=== PATIENT | male | born 1940 | race Caucasian/White ===

== ENCOUNTER 2019-10-31 10:13 | Outpatient (CLI) | payer MEDICARE, OTHER, SELFPAY ==
--- NOTE | 2019-10-31 10:29 | XR_ITS ---
WS: [id number] RIGHT SHOULDER: 3 VIEW(S) TECHNIQUE: Internal and external rotation with Y view. HISTORY: ADHESIVE capsulitis RIGHT shoulder, pain, rotator CUFF syndrome COMPARISON: None available. Mild narrowing of the AC joint with bony hypertrophy. Very slight narrowing of the glenohumeral joint . Bones are osteopenic. No loose bodies in the joint space. Visualized RIGHT upper lung is clear. XR/XR shoulder RT min 2V* [id number] IMPRESSION: 1. Mild AC joint osteoarthritis. 2. Minimal narrowing glenohumeral joint.
== END 2019-10-31 10:14 | disposition home or self-care (01) ==
PROVIDERS: Family Provider Family Medicine; PCP Electrodiagnostic Medicine; Visit Provider Electrodiagnostic Medicine
DX: M75.01 Adhesive capsulitis of right shoulder (principal); M75.101 Unspecified rotator cuff tear or rupture of right shoulder, not specified as traumatic; M25.511 Pain in right shoulder; M19.011 Primary osteoarthritis, right shoulder
CPT/HCPCS: 73030

== ENCOUNTER 2021-04-04 10:37 | Outpatient (CLI) | payer MEDICARE, OTHER, SELFPAY ==
[2021-04-04 11:13] VITALS: BP 123/81; PULSE 70; RESP 14; TEMP 36.6; O2SAT 94
[2021-04-04 11:37] VITALS: BP 103/66; PULSE 76; RESP 14; O2SAT 96
== END 2021-04-04 14:25 | disposition home or self-care (01) ==
PROVIDERS: PCP Electrodiagnostic Medicine; Visit Provider Electrodiagnostic Medicine
DX: U07.1 COVID-19 (principal)
CPT/HCPCS: 96365

== ENCOUNTER 2021-04-08 10:40 | Inpatient (IN) | payer MEDICARE, OTHER, SELFPAY ==
[2021-04-08] VITALS (16 sets, daily range): BP systolic 84–117; BP diastolic 61–90; PULSE 60–118; RESP 16–22; TEMP 36.6–36.9; O2SAT 41–99; BMI 30.9; BMI 21.2
--- NOTE | 2021-04-08 11:53 | ECG_ITS ---
[facility] Test Date: 2021-04-08 Pat Name: Scot Molina Department: Room: Gender: Male Collective Bargaining Specialist: : [id number] Requested By: Dae Love Order Number: [id number] Jeferson MD: Josh Wood M.D. Measurements Intervals [place] Rate: 60 P: 64 CA: 164 QRS: -45 QRSD: 98 T: 14 QT: 430 QTc: 433 Interpretive Statements SINUS RHYTHM POSSIBLE LEFT ATRIAL ENLARGEMENT [-0.1mV P WAVE IN V1/V2] INCOMPLETE RIGHT BUNDLE BRANCH BLOCK [90+ ms QRS DURATION, TERMINAL R IN V1/V2, 40+ ms S IN I/aVL/V4/V5/V6] LEFT ANTERIOR FASCICULAR BLOCK [QRS AXIS <= -45, QR IN I, RS IN II] No previous ECG available for comparison Electronically Signed On 04-08-2021 17:28:00 CDT by Josh Wood M.D. [id number]
--- NOTE | 2021-04-08 11:53 | XRR_ITS ---
PROCEDURE INFORMATION: Exam: XR Chest Exam date and time: 04/08/2021 11:53 AM Age: 80 years old Clinical indication: Other: Hypoxia; Additional info: Covid hypoxia TECHNIQUE: Imaging protocol: XR of the chest. Views: 1 view. COMPARISON: CR XR shoulder RT min 2V* [id number] 10/31/2019 10:42 AM FINDINGS: Lungs: Bilateral patchy hazy interstitial pulmonary infiltrates are present. Pleural spaces: Unremarkable. No pleural effusion. No pneumothorax. Heart/Mediastinum: The heart is not enlarged. The aorta is tortuous. Bones/joints: Unremarkable. XR/XR chest 1V portable [id number] IMPRESSION: Bilateral interstitial pulmonary infiltrates consistent with an interstitial viral pneumonia.
--- NOTE | 2021-04-08 12:01 | W.ED.COVID ---
HPI - COVID General: Chief Complaint: Shortness of Breath/Dyspnea Stated Complaint: COVID +/LOW O2 Time Seen by Provider: 04/08/21 11:53 Triage information: Has fever, cough or shortness of breath. History of Present Illness: HPI Narrative: 80-year-old male presents to the emergency room complaining of shortness of breath symptoms began 11 days ago approximately 4 days ago he had a monoclonal antibody infusion. He states is progressively gotten worse since then. When he received a monoclonal antibody infusion he was near the end of his window. Upon arrival in the ER his oxygen saturation was as low as 41% on room air it did improve with oxygen supplementation he was quickly transitioned to heated high flow oxygen. He is mildly confused. He does report myalgias headache and diarrhea. He has not had any chest pain. MD complaint: known COVID positive COVID 19 common symptoms: positive fever(s), chills, cough, non-productive cough and dyspnea; negative productive cough, throat pain, nasal congestion, nausea, vomiting or diarrhea COVID 19 other sytmptoms: positive requiring oxygen; negative chest pain Onset (ago): hour(s) Severity: severe Pertinent comorbid conditions: hypertension and COPD/respiratory disease Treatment prior to arrival: monocloncal antibody COVID Results: SARS-CoV-2 Antigen (Rapid) Negative (Negative) 04/08/21 14:39 04/08/21 Nasal/Oral Coronavirus 2019 PCR Detected H 04/08/21 14:39 04/08/21 Review of Systems Const: Reports: fever(s) and chills ENMT: Denies: throat pain, ear or mastoid pain, nasal discharge or nasal congestion Card: Denies: chest pain, edema, dyspnea on exertion or orthopnea Resp: Reports: dyspnea and non-productive cough; Denies: productive cough GI: Denies: abdominal pain, nausea, vomiting, hematemesis, coffee ground emesis, diarrhea, constipation, bloating, hematochezia or melena : Denies: flank pain, dysuria, urinary frequency or urinary urgency Skin/Breast: Denies: rash or pruritus [facility] ED PFSH: Medical History (Updated 04/15/21 @ 07:05 by Dae Cotton DO) ARDS (adult respiratory distress syndrome) ARDS survivor Surgical History (Updated 04/13/21 @ 00:01 by ) H/O aortic valve replacement Family History (Updated 04/08/21 @ 22:16 by Luke Dawkins MD) Other CAD (coronary artery disease) Denies family history of Chronic kidney disease (CKD) Social History (Updated 04/08/21 @ 22:17 by Luke Dawkins MD) Smoking and tobacco status: current every day smoker Alcohol intake: never Household members: spouse Housing: House Physical Exam Const: COMMON NORMALS: no acute distress GENERAL APPEARANCE: cooperative and comfortable ORIENTATION/CONSCIOUSNESS: Yes awake, Yes oriented to person, Yes oriented to place and Yes oriented to time HENMT: COMMON NORMALS: normocephalic, atraumatic and hearing grossly normal bilaterally HEAD & SCALP: normocephalic and atraumatic Neck/C-Spine: COMMON NORMALS: no JVD Resp: AUSCULTATION: crackles and wheezes Cardio: COMMON NORMALS: no JVD, regular rate, regular rhythm and No murmurs present (Cardio) RATE: regular rate RHYTHM: regular rhythm GI: COMMON NORMALS: Soft to palpation and No hepatosplenomegaly present AUSCULTATION: Yes normoactive bowel sounds PALPATION: Yes Soft to palpation, No Tenderness to palpation present (GI), No Guarding due to palpation present (GI) and Yes No hepatosplenomegaly present Extremity: COMMON NORMALS: normal to inspection, capillary refill normal, no clubbing, cyanosis or edema, no calf tenderness and no pedal edema Neuro: SENSORIUM/ORIENTATION: Yes oriented to person, Yes oriented to place and Yes oriented to time Skin: COMMON NORMALS: no rashes or lesions noted GENERAL SKIN EXAM: no rashes or lesions noted Course Vital Signs: Vital signs: Vital Signs Temperature 97.6 F 04/12/21 12:00 Pulse Rate 65 04/12/21 12:00 Respiratory Rate 18 04/12/21 12:00 Blood Pressure 136/86 04/12/21 12:00 Pulse Oximetry 93 04/12/21 12:00 MDM - COVID MDM Narrative: Medical decision making narrative: Covid pneumonitis with respiratory failure. We'll go ahead and admit discussed with hospitalist remdesivir and steroids ordered orders are written. Patient being maintained in need high flow oxygen at this time. Lab Data: Labs: Lab Results 04/08/21 04/08/21 04/08/21 Range/Units 11:57 11:57 11:57 WBC 12.0 H (4.0-10.0) 10^3/ uL RBC 5.03 (4.1-5.3) 10^6/u L Hgb 15.6 (11.7-16.6) g/dL Hct 47.8 (42.0-52.0) % MCV 95.0 H (80-94) fL MCH 31.0 (28.0-34.0) pg MCHC 32.6 (30.0-36.0) g/dL RDW 11.5 L (12.1-15.1) % Plt Count 319 (130-400) 10^3/c mm MPV 10.5 H (7.4-10.4) fL Neut % (Auto) 86.4 % Lymph % (Auto) 6.7 % [place] % (Auto) 3.8 % Eos % (Auto) 0.0 % Baso % (Auto) 0.4 % Neut # (Auto) 10.38 H (1.8-7.7) 10^3/u L Lymph # (Auto) 0.8 (0.8-4.8) 10^3/u L [place] # (Auto) 0.5 (0.2-0.9) 10^3/u L Eos # (Auto) 0.0 (0.0-0.8) 10^3/u L Baso # (Auto) 0.1 (0.0-0.1) 10^3/u L Nucleated RBC % (a uto) 0 % Nucleated RBCs # 0.0 /100WBC D-Dimer 1.38 H (0-0.59) ug/mIFE U Specimen Type Sample Site ABG pH (7.35-7.45) ABG pCO2 (35-45) mmHg ABG pO2 (80.0-100.0) mmH g ABG HCO3 (22-26) mmol/L ABG O2 Saturation ABG Base Excess (-2.0-2.0) mmol/ L Les Test A-a O2 Gradient (5-10) mmHg Hematocrit (42-52) % Hgb O2 Saturation (95-100) % Carboxyhemoglobin (0.4-20.1) %THgb Methemoglobin (0.4-1.5) % Total Hemoglobin (14-18) g/dL Ionized Calcium (1.1-1.4) mmol/L O2 Delivery Device O2 Liters/Min % Systems Development Consultant ID Sodium 136 (136-145) mmol/L Potassium 3.9 (3.5-5.1) mmol/L Chloride 97 L (98-107) mmol/L Carbon Dioxide 30 H (22-29) mmol/L Anion Gap 12.9 (5-19) BUN 23 (8-23) mg/dL Creatinine 0.8 (0.7-1.2) mg/dL GFR Calculation Not Reportable Glucose 82 (65-115) mg/dL Calculated Osmolal ity 285 (285-295) mOsm/k g Lactic Acid (0.5-2.2) mmol/L Calcium 7.9 L (8.5-10.5) mg/dL Iron (59-158) ug/dL TIBC mcg/dl % Saturation (20-50) % Unsat Iron Binding (112-347) ug/dL Total Bilirubin 0.5 (0.15-1.2) mg/dL AST 31 (0-40) U/L ALT 33 (0-41) U/L Alkaline Phosphata se 81 (40-130) IU/L C-Reactive Protein 37.2 H (0.0-4.9) mg/L Total Protein 6.2 L (6.6-8.7) g/dL Albumin 3.1 L (3.5-5.2) g/dL Globulin 3.1 (1.3-4.6) g/dL Procalcitonin (0-0.5) ng/mL Nasal/Oral COVID-1 9 PCR SARS-CoV-2 Ag (Rap id) (Negative) 04/08/21 04/08/21 04/08/21 Range/Units 11:57 11:57 12:04 WBC (4.0-10.0) 10^3/ uL RBC (4.1-5.3) 10^6/u L Hgb (11.7-16.6) g/dL Hct (42.0-52.0) % MCV (80-94) fL MCH (28.0-34.0) pg MCHC (30.0-36.0) g/dL RDW (12.1-15.1) % Plt Count (130-400) 10^3/c mm MPV (7.4-10.4) fL Neut % (Auto) % Lymph % (Auto) % [place] % (Auto) % Eos % (Auto) % Baso % (Auto) % Neut # (Auto) (1.8-7.7) 10^3/u L Lymph # (Auto) (0.8-4.8) 10^3/u L [place] # (Auto) (0.2-0.9) 10^3/u L Eos # (Auto) (0.0-0.8) 10^3/u L Baso # (Auto) (0.0-0.1) 10^3/u L Nucleated RBC % (a uto) % Nucleated RBCs # /100WBC D-Dimer (0-0.59) ug/mIFE U Specimen Type Arterial Sample Site Radial, left ABG pH 7.52 H (7.35-7.45) ABG pCO2 36.4 (35-45) mmHg ABG pO2 62.8 L (80.0-100.0) mmH g ABG HCO3 29.4 H (22-26) mmol/L ABG O2 Saturation 93.1 ABG Base Excess 6.3 H (-2.0-2.0) mmol/ L Les Test Pos A-a O2 Gradient 5.4 (5-10) mmHg Hematocrit 46.9 (42-52) % Hgb O2 Saturation 92.3 L (95-100) % Carboxyhemoglobin 0.6 (0.4-20.1) %THgb Methemoglobin 0.2 L (0.4-1.5) % Total Hemoglobin 15.3 (14-18) g/dL Ionized Calcium 1.2 (1.1-1.4) mmol/L O2 Delivery Device Nrb O2 Liters/Min 15.0 % Systems Development Consultant ID Amh Sodium 136.0 (136-145) mmol/L Potassium 3.6 (3.5-5.1) mmol/L Chloride (98-107) mmol/L Carbon Dioxide (22-29) mmol/L Anion Gap (5-19) BUN (8-23) mg/dL Creatinine (0.7-1.2) mg/dL GFR Calculation Glucose 90.0 (65-115) mg/dL Calculated Osmolal ity (285-295) mOsm/k g Lactic Acid 1.5 (0.5-2.2) mmol/L Calcium (8.5-10.5) mg/dL Iron 66 (59-158) ug/dL TIBC 191 mcg/dl % Saturation 34.5 (20-50) % Unsat Iron Binding 125 (112-347) ug/dL Total Bilirubin (0.15-1.2) mg/dL AST (0-40) U/L ALT (0-41) U/L Alkaline Phosphata se (40-130) IU/L C-Reactive Protein (0.0-4.9) mg/L Total Protein (6.6-8.7) g/dL Albumin (3.5-5.2) g/dL Globulin (1.3-4.6) g/dL Procalcitonin 0.92 H (0-0.5) ng/mL Nasal/Oral COVID-1 9 PCR SARS-CoV-2 Ag (Rap id) (Negative) 04/08/21 04/08/21 Range/Units 14:39 14:39 WBC (4.0-10.0) 10^3/ uL RBC (4.1-5.3) 10^6/u L Hgb (11.7-16.6) g/dL Hct (42.0-52.0) % MCV (80-94) fL MCH (28.0-34.0) pg MCHC (30.0-36.0) g/dL RDW (12.1-15.1) % Plt Count (130-400) 10^3/c mm MPV (7.4-10.4) fL Neut % (Auto) % Lymph % (Auto) % [place] % (Auto) % Eos % (Auto) % Baso % (Auto) % Neut # (Auto) (1.8-7.7) 10^3/u L Lymph # (Auto) (0.8-4.8) 10^3/u L [place] # (Auto) (0.2-0.9) 10^3/u L Eos # (Auto) (0.0-0.8) 10^3/u L Baso # (Auto) (0.0-0.1) 10^3/u L Nucleated RBC % (a uto) % Nucleated RBCs # /100WBC D-Dimer (0-0.59) ug/mIFE U Specimen Type Sample Site ABG pH (7.35-7.45) ABG pCO2 (35-45) mmHg ABG pO2 (80.0-100.0) mmH g ABG HCO3 (22-26) mmol/L ABG O2 Saturation ABG Base Excess (-2.0-2.0) mmol/ L Les Test A-a O2 Gradient (5-10) mmHg Hematocrit (42-52) % Hgb O2 Saturation (95-100) % Carboxyhemoglobin (0.4-20.1) %THgb Methemoglobin (0.4-1.5) % Total Hemoglobin (14-18) g/dL Ionized Calcium (1.1-1.4) mmol/L O2 Delivery Device O2 Liters/Min % Systems Development Consultant ID Sodium (136-145) mmol/L Potassium (3.5-5.1) mmol/L Chloride (98-107) mmol/L Carbon Dioxide (22-29) mmol/L Anion Gap (5-19) BUN (8-23) mg/dL Creatinine (0.7-1.2) mg/dL GFR Calculation Glucose (65-115) mg/dL Calculated Osmolal ity (285-295) mOsm/k g Lactic Acid (0.5-2.2) mmol/L Calcium (8.5-10.5) mg/dL Iron (59-158) ug/dL TIBC mcg/dl % Saturation (20-50) % Unsat Iron Binding (112-347) ug/dL Total Bilirubin (0.15-1.2) mg/dL AST (0-40) U/L ALT (0-41) U/L Alkaline Phosphata se (40-130) IU/L C-Reactive Protein (0.0-4.9) mg/L Total Protein (6.6-8.7) g/dL Albumin (3.5-5.2) g/dL Globulin (1.3-4.6) g/dL Procalcitonin (0-0.5) ng/mL Nasal/Oral COVID-1 9 PCR Detected H SARS-CoV-2 Ag (Rap id) Negative (Negative) COVID Results: SARS-CoV-2 Antigen (Rapid) Negative (Negative) 04/08/21 14:39 04/08/21 Nasal/Oral Coronavirus 2019 PCR Detected H 04/08/21 14:39 04/08/21 Discharge Plan Discharge Patient Disposition: Home Admit Provider: Luke Dawkins Clinical Impression: COVID-19, Paroxysmal A-fib, Acute exacerbation of chronic obstructive airways disease Condition: Stable Discharge Orders: Discharge Order (Routine); Ordered 04/12/21 Ordered By: Luke Dawkins Discharge Diet: Cardiac Discharge Activity: Resume usual activity Coding Level of Care Code ED Change Management Director for Irena Herrera
[2021-04-08 12:09] LABS: Basophils # 0.1 10^3/uL (0.0-0.1); Basophils % 0.4 %; Hematocrit 47.8 % (42.0-52.0); Hemoglobin 15.6 g/dL (11.7-16.6); Lymphocytes # 0.8 10^3/uL (0.8-4.8); Lymphocytes % 6.7 %; Mean Corpuscular HGB Conc 32.6 g/dL (30.0-36.0); Mean Platelet Volume 10.5 fL (7.4-10.4); Monocytes # 0.5 10^3/uL (0.2-0.9); Monocytes % 3.8 %; Neutrophils # 10.38 10^3/uL (1.8-7.7); Neutrophils % 86.4 %; Nucleated Red Blood Cells % 0 %; Platelet Count 319 10^3/cmm (130-400); Red Blood Count 5.03 10^6/uL (4.1-5.3); Red Cell Distribution Width 11.5 % (12.1-15.1)
[2021-04-08 12:16] LABS: ABG PCO2 36.4 mmHg (35-45); ABG PH Result 7.52 (7.35-7.45); Alveolar-Arterial Oxygen Gradi 5.4 mmHg (5-10); Arterial Blood Gas Hematocrit 46.9 % (42-52); Base Excess ABG 6.3 mmol/L (-2.0-2.0); Blood Gas Allen Test Pos; Blood Gas Operator Identificat AMH; Blood Gas Sample Site Radial, left; Blood Gas Sample Type Arterial; Carboxyhemoglobin 0.6 %THgb (0.4-20.1); HCO3 ABG 29.4 mmol/L (22-26); HGB O2 Sat 92.3 % (95-100); Ionized Calcium Level - ABG 1.2 mmol/L (1.1-1.4); Methemoglobin 0.2 % (0.4-1.5); Oxygen Device NRB; Oxygen Saturation ABG 93.1; PO2 ABG 62.8 mmHg (80.0-100.0); Potassium Level - ABG 3.6 mmol/L (3.5-5.0); Total Hemoglobin 15.3 g/dL (14-18)
--- NOTE | 2021-04-08 12:31 | PC.PHAR ---
Addendum entered by Mila Sims 04/08/21 12:55: PTS STATES THE PT NORMALLY DOESNT TAKE PRESCRIPTION MEDICATIONS Original Note: PTS STATES SHE HELPS THE PT WITH HIS MEDICATIONS-PTS STATES THE PT FINISHED HIS ZPAK FILLED ON 04/03/21 5D/S AND DEXAMETHASONE RX FILLED ON 04/02/21 5D/S ON 04/07/21-PTS STATES THE PT HAS BEEN USING A PROAIR INHALER EXT MED HISTORY DOESNT SHOW WHEN LAST FILLED
[2021-04-08 12:38] LABS: Alanine Aminotransferase 33 U/L (0-41); Albumin Level 3.1 g/dL (3.5-5.2); Alkaline Phosphatase 81 IU/L (40-130); Anion Gap 12.9 (5-19); Aspartate Amino Transferase 31 U/L (0-40); Blood Urea Nitrogen 23 mg/dL (8-23); C Reactive Protein 37.2 mg/L (0.0-4.9); Calcium 7.9 mg/dL (8.5-10.5); Carbon Dioxide 30 mmol/L (22-29); Chloride 97 mmol/L (98-107); Globulin 3.1 g/dL (1.3-4.6); Glucose 82 mg/dL (65-115); Osmolality Calculated 285 mOsm/kg (285-295); Potassium 3.9 mmol/L (3.5-5.1); Sodium 136 mmol/L (136-145); Total Bilirubin 0.5 mg/dL (0.15-1.2); Total Protein 6.2 g/dL (6.6-8.7)
[2021-04-08 12:39] LABS: Lactic Sepsis W/Reflex 1.5 mmol/L (0.5-2.2)
[2021-04-08 12:41] LABS: D Dimer 1.38 ug/mIFEU (0-0.59)
--- NOTE | 2021-04-08 12:53 | CTR_ITS ---
PROCEDURE INFORMATION: Exam: CTA Chest With Contrast Exam date and time: 04/08/2021 12:53 PM Age: 80 years old Clinical indication: Condition or disease; Prior surgery; Surgery type: Heart; Patient HX: HX of covid, low 02; Additional info: Nusrat mcdowellid TECHNIQUE: Imaging protocol: Computed tomographic angiography of the chest with contrast. 3D rendering (Not supervised by radiologist): MIP and/or 3D reconstructed images were created by the technologist. Radiation optimization: All CT scans at this facility use at least one of these dose optimization techniques: automated exposure control; mA and/or kV adjustment per patient size (includes targeted exams where dose is matched to clinical indication); or iterative reconstruction. Contrast material: OMNI 350; Contrast volume: 71 ml; Contrast route: INTRAVENOUS (IV); COMPARISON: CR XR chest 1V portable [id number] 04/08/2021 12:10 PM RADIATION DOSE METRICS: Total DLP (mGy-cm): 411.85 FINDINGS: Pulmonary arteries: No pulmonary emboli. Aorta: No aortic aneurysm. Lungs: Bilateral multifocal ground-glass opacities in the lung periphery and bilateral partial lower lung consolidation. No mass or cavitary lesion. Pleural spaces: No pneumothorax. No pleural effusion. Heart: No cardiomegaly. No pericardial effusion. Aortic valve replacement. Lymph nodes: No significant adenopathy. Bones/joints: No acute findings. Soft tissues: Unremarkable. CT/CT angio chest PE protcl [id number] IMPRESSION: Bilateral pneumonia consistent with COVID-19 pneumonia. No pulmonary embolism. Radiation Dose CTDIVOL = (mGy): DLP = 411.85 (mGy-cm)
[2021-04-08] MEDS: remdesivir 200 MG in sodium chloride 0.9% (100 ml) 100 ML 100 MG IV (13:11)
[2021-04-08] MEDS: dexamethasone 4 mg/mL INJ 6 MG IVP (13:28)
[2021-04-08] MEDS: iohexol 350 mg/mL 100 mL Btl IV (15:29)
[2021-04-08 15:57] LABS: SARS Covid-2 Antigen Negative (Negative)
--- NOTE | 2021-04-08 17:27 | P.CONIM_ITS ---
Providers/Reason For Consult Primary Care Provider: Marcelo Thao DO History of Present Illness History of Present Illness Scot Molina is a 80 year old male Meds/Allergies Home Medications and Allergies Home Medications Medication Instructions Recorded Confirmed Last Taken Type albuterol sulfate [ProAir HFA] 2 puff INHALATION Q4H PRN 04/08/21 04/08/21 Unknown History aspirin [Aspir-81] 81 mg PO BEDTIME 04/08/21 04/08/21 Unknown History azithromycin See Rx Instructions .ROUTE .COMPLEX 04/08/21 04/08/21 04/07/21 History peppepxqbcsvpokp-XMS-fcrtfhv 1 ea PO TID PRN 04/08/21 04/08/21 Unknown History [Yaneth-Moore Plus Cold] cholecalciferol (vitamin D3) 2,000 unit PO DAILY 04/08/21 04/08/21 04/07/21 History coenzyme Q10 [CoQ-10] 100 mg PO DAILY 04/08/21 04/08/21 Unknown History dexamethasone 6 mg PO DAILY 04/08/21 04/08/21 04/07/21 History dextromethorphan-guaifenesin 1 tab PO BID PRN 04/08/21 04/08/21 04/08/21 History [Mucinex DM] multivitamin 1 tab PO DAILY 04/08/21 04/08/21 Unknown History Allergies Allergy/AdvReac Type Severity Reaction Status Date / Time No Known Allergies Allergy Verified 04/08/21 12:25 Vitals/I&O/Wt Last Vital Signs Temp 98.4 F 04/08/21 12:03 Pulse 63 04/08/21 16:13 Resp 17 04/08/21 16:13 BP 98/74 04/08/21 12:03 Pulse Ox 96 04/08/21 16:13 04/08/21 04/08/21 04/08/21 06:59 14:59 22:59 Intake Total 100 / 100 Balance 100 / 100 Weight last 48 hrs Weight 81.647 kg Data Labs: Other Labs: Laboratory Results WBC 12.0 10^3/uL (4.0 -10.0) H 04/08/21 11:57 RBC 5.03 10^6/uL (4.1 -5.3) 04/08/21 11:57 Hgb 15.6 g/dL (11.7-1 6.6) 04/08/21 11:57 Hct 47.8 % (42.0-52.0 ) 04/08/21 11:57 MCV 95.0 fL (80-94) H 04/08/21 11:57 MCH 31.0 pg (28.0-34. 0) 04/08/21 11:57 MCHC 32.6 g/dL (30.0-3 6.0) 04/08/21 11:57 RDW 11.5 % (12.1-15.1 ) L 04/08/21 11:57 Plt Count 319 10^3/cmm (130 -400) 04/08/21 11:57 MPV 10.5 fL (7.4-10.4 ) H 04/08/21 11:57 Neut % (Auto) 86.4 % 04/08/21 11:57 Lymph % (Auto) 6.7 % 04/08/21 11:57 [place] % (Auto) 3.8 % 04/08/21 11:57 Eos % (Auto) 0.0 % 04/08/21 11:57 Baso % (Auto) 0.4 % 04/08/21 11:57 Neut # (Auto) 10.38 10^3/uL (1. 8-7.7) H 04/08/21 11:57 Lymph # (Auto) 0.8 10^3/uL (0.8- 4.8) 04/08/21 11:57 [place] # (Auto) 0.5 10^3/uL (0.2- 0.9) 04/08/21 11:57 Eos # (Auto) 0.0 10^3/uL (0.0- 0.8) 04/08/21 11:57 Baso # (Auto) 0.1 10^3/uL (0.0- 0.1) 04/08/21 11:57 Nucleated RBC % (a uto) 0 % 04/08/21 11:57 Nucleated RBCs # 0.0 /100WBC 04/08/21 11:57 D-Dimer 1.38 ug/mIFEU (0- 0.59) H 04/08/21 11:57 Specimen Type Arterial 04/08/21 12:04 Sample Site Radial, left 04/08/21 12:04 ABG pH 7.52 (7.35-7.45) H 04/08/21 12:04 ABG pCO2 36.4 mmHg (35-45) 04/08/21 12:04 ABG pO2 62.8 mmHg (80.0-1 00.0) L 04/08/21 12:04 ABG HCO3 29.4 mmol/L (22-2 6) H 04/08/21 12:04 ABG O2 Saturation 93.1 04/08/21 12:04 ABG Base Excess 6.3 mmol/L (-2.0- 2.0) H 04/08/21 12:04 Les Test Pos 04/08/21 12:04 A-a O2 Gradient 5.4 mmHg (5-10) 04/08/21 12:04 Hematocrit 46.9 % (42-52) 04/08/21 12:04 Hgb O2 Saturation 92.3 % (95-100) L 04/08/21 12:04 Carboxyhemoglobin 0.6 %THgb (0.4-20 .1) 04/08/21 12:04 Methemoglobin 0.2 % (0.4-1.5) L 04/08/21 12:04 Total Hemoglobin 15.3 g/dL (14-18) 04/08/21 12:04 Sodium 136.0 mmol/L (131 -143) 04/08/21 12:04 Potassium 3.6 mmol/L (3.5-5 .0) 04/08/21 12:04 Glucose 90.0 mg/dL (70-11 5) 04/08/21 12:04 Ionized Calcium 1.2 mmol/L (1.1-1 .4) 04/08/21 12:04 O2 Delivery Device Nrb 04/08/21 12:04 O2 Liters/Min 15.0 % 04/08/21 12:04 Single Spindle Screw Machine Operator ID Amh 04/08/21 12:04 Sodium 136 mmol/L (136-1 45) 04/08/21 11:57 Potassium 3.9 mmol/L (3.5-5 .1) 04/08/21 11:57 Chloride 97 mmol/L (98-107 ) L 04/08/21 11:57 Carbon Dioxide 30 mmol/L (22-29) H 04/08/21 11:57 Anion Gap 12.9 (5-19) 04/08/21 11:57 BUN 23 mg/dL (8-23) 04/08/21 11:57 Creatinine 0.8 mg/dL (0.7-1. 2) 04/08/21 11:57 GFR Calculation Not Reportable 04/08/21 11:57 Glucose 82 mg/dL (65-115) 04/08/21 11:57 Calculated Osmolal ity 285 mOsm/kg (285- 295) 04/08/21 11:57 Lactic Acid 1.5 mmol/L (0.5-2 .2) 04/08/21 11:57 Calcium 7.9 mg/dL (8.5-10 .5) L 04/08/21 11:57 Total Bilirubin 0.5 mg/dL (0.15-1 .2) 04/08/21 11:57 AST 31 U/L (0-40) 04/08/21 11:57 ALT 33 U/L (0-41) 04/08/21 11:57 Alkaline Phosphata se 81 IU/L (40-130) 04/08/21 11:57 C-Reactive Protein 37.2 mg/L (0.0-4. 9) H 04/08/21 11:57 Total Protein 6.2 g/dL (6.6-8.7 ) L 04/08/21 11:57 Albumin 3.1 g/dL (3.5-5.2 ) L 04/08/21 11:57 Globulin 3.1 g/dL (1.3-4.6 ) 04/08/21 11:57 SARS-CoV-2 Ag (Rap id) Negative (Negati ve) 04/08/21 14:39 Impressions Chest X-Ray 04/08/21 11:53 IMPRESSION: Bilateral interstitial pulmonary infiltrates consistent with an interstitial viral pneumonia. Chest CTA 04/08/21 12:53 IMPRESSION: Bilateral pneumonia consistent with COVID-19 pneumonia. No pulmonary embolism. Radiation Dose CTDIVOL = (mGy): DLP = 411.85 (mGy-cm) A&P Assessment and plan (1) ARDS (adult respiratory distress syndrome): Status: Acute (2) COVID-19: Status: Acute Additional A&P Information ARDS secondary to COVID-19 pneumonia: Severe disease. Oxygen supplementation keeping saturation over 88%. Dexamethasone 6 mg daily. Remdesivir to finish a 5-day course. Vitamin C, zinc. Advair, Spiriva. Pulmonary toilet with incentive spirometry flutter valve. We will monitor inflammatory markers including ferritin, ESR, CRP, D-dimer, fibrinogen. If getting elevated will dose Actemra. Patient was made aware of the same and he has given verbal consent. D-dimer elevated. CTA negative for pulmonary embolism. For now we will start patient on full dose anticoagulation given history of CVA, patient requiring high oxygen supplementation. Will monitor for anemia or blood loss. Check sputum culture, procalcitonin, urine Legionella, bacterial antigen, blood culture. Procalcitonin negative. Low suspicion of bacterial infection for now. For now hold off on antibiotics. Given hypoxia will try to keep patient as negative as possible. Patient clinically dehydrated for now. For now continue with gentle hydration. Strict input output charting, daily weights. Coding Level of Care Code Acute Bench Shear Operator for [facility] Diagnoses ARDS (adult respiratory distress syndrome) J80 COVID-19 U07.1
[2021-04-08 18:11] LABS: Procalcitonin 0.92 ng/mL (0-0.5)
[2021-04-08 18:22] LABS: Iron 66 ug/dL (59-158); Percent Saturation 34.5 % (20-50); Total Iron Binding Capacity 191 mcg/dl; Unsaturated Iron Binding 125 ug/dL (112-347)
[2021-04-08 18:57] LABS: Add Urine Microscopic? NO; Charge for UA Resulting for Rev
[2021-04-08 19:30] LABS: Bilirubin Urine Neg (Negative); Blood Urine Neg (Negative); Glucose Urine UA Norm (Normal); Ketones Urine 1+ (Negative); Leukocyte Esterase Urine Negative (Negative); Nitrate Urine Negative (Negative); Protein Urine Neg (Negative); Sulfosalicylic Acid Urine Negative (Negative); Urine Appearance Clear (CLEAR); Urine Color Yellow (Yellow); Urobilinogen Urine 1 mg/dL (Negative); pH Urine 9 (5-7)
[2021-04-08] MEDS: piperacillin-tazobactam 3.375 GM in sodium chloride 0.9% (plus) 50 ML IV (20:09)
[2021-04-08] MEDS: ascorbic acid 500 mg Tablet 1000 MG PO (20:09)
[2021-04-08] MEDS: famotidine 20 mg/2 mL INJ IVP (20:09)
[2021-04-08] MEDS: ipratropium-albuterol 3 mL Neb INHALATION (21:17)
[2021-04-08] MEDS: budesonide 0.5 mg/2 mL Neb INHALATION (21:18)
[2021-04-08] MEDS: sodium chloride 0.9% 500 ML 999 ML IV ×2 (21:24→23:49)
[2021-04-08] MEDS: sodium chloride 0.9% 1,000 ML 50 ML IV (21:24)
[2021-04-08] MEDS: benzonatate 100 mg Capsule PO (21:25)
[2021-04-08] MEDS: aspirin 81 mg EC Tablet PO (21:25)
[2021-04-08 22:01] LABS: Glucose Point of Care 123 mg/dL (70-110)
--- NOTE | 2021-04-08 22:08 | PM.HP ---
Providers/Chief Complaint Admitting Physician: Luke Dawkins MD Primary Care Provider: Marcelo Thao DO Chief Complaint: COVID +/LOW O2 History of Present Illness History taken through chart review. Patient is extremely hard of hearing and becomes tachypneic when talking. Scot Molina is a 80 year old male with past medical history of aortic valve replacement many years ago on oral aspirin who came into the hospital because of shortness of breath getting worse over last 11 days. Patient states he has been having symptoms for last 11 days associated with nausea, diarrhea and vomiting. He he has subjective feels a fever as well. Patient was tested positive at [facility] for COVID-19 pneumonia and received monoclonal antibody infusion 4 days ago. He states since he got the infusion he has gotten worse. On arrival to the ER his oxygen saturation was as low as 41% on room air and did not improve with oxygen supplementation so he was transitioned over to heated high flow. Blood work done in the ER showed a white count of 12,000, hemoglobin of 15.6, platelet count 319, ABG showing a pH of 7.5 with a PCO2 36, PO2 PO2 of 62.8 on 15 L nonrebreather, chemistry showing a sodium of 136, chloride of 97, CO2 of 30, creatinine of 0.8, lactate of 1.5, CRP of 37.2, UA showed negative nitrite, negative leuk esterase. Patient has had chest imaging as below. Review of Systems General: Reports: ROS unobtainable due to medical condition Medications/Allergies Home Medications Medication Instructions Recorded Confirmed Last Taken Type albuterol sulfate [ProAir HFA] 2 puff INHALATION Q4H PRN 04/08/21 04/08/21 Unknown History aspirin [Aspir-81] 81 mg PO BEDTIME 04/08/21 04/08/21 Unknown History azithromycin See Rx Instructions .ROUTE .COMPLEX 04/08/21 04/08/21 04/07/21 History rjfytidtmgwigfpa-LNR-ovpivxt 1 ea PO TID PRN 04/08/21 04/08/21 Unknown History [Yaneth-Duncan Plus Cold] cholecalciferol (vitamin D3) 2,000 unit PO DAILY 04/08/21 04/08/21 04/07/21 History coenzyme Q10 [CoQ-10] 100 mg PO DAILY 04/08/21 04/08/21 Unknown History dexamethasone 6 mg PO DAILY 04/08/21 04/08/21 04/07/21 History dextromethorphan-guaifenesin 1 tab PO BID PRN 04/08/21 04/08/21 04/08/21 History [Mucinex DM] multivitamin 1 tab PO DAILY 04/08/21 04/08/21 Unknown History Allergies Allergy/AdvReac Type Severity Reaction Status Date / Time No Known Allergies Allergy Verified 04/08/21 12:25 PFSH Acute PFSH: Surgical History H/O aortic valve replacement Family History (Updated 04/08/21 @ 22:16 by Luke Dawkins MD) Other CAD (coronary artery disease) Denies family history of Chronic kidney disease (CKD) Social History (Updated 04/08/21 @ 22:17 by Luke Dawkins MD) Smoking and tobacco status: current every day smoker Alcohol intake: never Household members: spouse Housing: House Vitals/I&O/Wt Last Vital Signs Temp 98.4 F 04/08/21 12:03 Pulse 66 04/08/21 21:23 Resp 20 H 04/08/21 21:19 BP 98/74 04/08/21 12:03 Pulse Ox 96 04/08/21 21:19 04/08/21 04/08/21 04/08/21 06:59 14:59 22:59 Intake Total 100 / 100 Balance 100 / 100 Weight last 48 hrs Weight 81.647 kg Physical Exam Narrative: EXAM NARRATIVE: General: No acute distress, AO x3, dehydrated, hard of hearing. HEENT: PERRLA, pupils bilaterally equal and reactive Chest: Normal vesicular breath sounds, no added sounds, equal good air entry bilaterally CVS: S1-S2 regular, no murmurs, no tachycardia, no gallops, no rubs Abdomen: Soft, nontender, no organomegaly, bowel sounds present Neuro: No focal deficits, no facial deformity, AO x3, power 5/5 in all limbs Data : 04/08/21 11:57 04/08/21 11:57 Micro: Microbiology 04/08/21 18:16 Blood Culture - Preliminary Blood SPECIMEN COLLECTED 04/08/21 18:12 Blood Culture - Preliminary Blood SPECIMEN COLLECTED A&P Assessment and plan (1) ARDS (adult respiratory distress syndrome): Status: Acute (2) COVID-19: Status: Acute Additional A&P Information ARDS secondary to COVID-19 pneumonia: Severe disease PF ratio appreciated on the ABG. Oxygen supplementation keeping saturation over 88%. Dexamethasone 6 mg daily. Remdesivir to finish a 5-day course. Vitamin C, zinc. DuoNebs every 6 hour, budesonide twice daily Pulmonary toilet with incentive spirometry flutter valve. We will monitor inflammatory markers including ferritin, ESR, CRP, D-dimer, fibrinogen. If getting elevated will dose Actemra. Patient was made aware of the same and he has given verbal consent. D-dimer elevated. Check CTA. For now we will start patient on full dose anticoagulation as patient requiring high oxygen supplementation. Will monitor for anemia or blood loss. Check sputum culture, procalcitonin, urine Legionella, bacterial antigen, blood culture. As patient is on high oxygen supplementation for now start patient on zosyn and azithromycin to cover for possible aspiration pneumonia and atypical coverage. Given hypoxia will try to keep patient as negative as possible. Patient clinically dehydrated for now. For now continue with gentle hydration. IVF with normal saline 50 cc/h. Strict input output charting, daily weights. Check echocardiogram. Continue other chronic medications. We will change treatment as per clinical picture. Transfer to do with if and when bed available. Check iron panel, lipid panel, TSH, A1c. Full code. Regular diet. Full dose Lovenox will help with DVT prophylaxis as well. Attestations Medical Necessity Statement*: Admission for more than 2 midnights for treatment of ARDS secondary COVID-19 pneumonia Time Spent in Patient Care: Greater than 35 minutes (>than 50% of time spent in counselling and/or direct pt care on unit). Coding Level of Care Code Acute Hard Metals Hand Engraver for gaviota Herrera Diagnoses ARDS (adult respiratory distress syndrome) J80 COVID-19 U07.1
--- NOTE | 2021-04-08 22:12 | PC.NURSE ---
report called to Rita MARTINEZ
[2021-04-08] MEDS: enoxaparin 80 mg/0.8 mL Syringe SUBCUT (23:49)
[2021-04-09] VITALS (15 sets, daily range): BP systolic 114–142; BP diastolic 75–95; PULSE 72–90; RESP 18–26; TEMP 36.5–37.1; O2SAT 90–97; BMI 21.2
[2021-04-09] MEDS: ipratropium-albuterol 3 mL Neb INHALATION ×4 (02:35→21:19)
[2021-04-09] MEDS: piperacillin-tazobactam 3.375 GM in sodium chloride 0.9% (plus) 50 ML IV ×3 (03:42→22:38)
--- NOTE | 2021-04-09 05:05 | PC.RESP ---
RT Shift Note Frequent safety and respiratory rounds continue. Orders completed as indicated. Patient monitored pre and post treatments throughout shift. Patient did tolerate treatments appropriately. Condition did not change. Patient educated on respiratory treatment and medications. Patient returned demonstration. Will continue to monitor patient progress.
[2021-04-09] MEDS: dexamethasone 4 mg/mL INJ 6 MG IVP (05:44)
[2021-04-09] MEDS: famotidine 20 mg/2 mL INJ IVP ×2 (05:44→16:57)
--- NOTE | 2021-04-09 06:00 | XRR_ITS ---
PROCEDURE INFORMATION: Exam: XR Chest Exam date and time: 04/09/2021 6:00 AM Age: 80 years old Clinical indication: Cough; Patient HX: Follow up covid TECHNIQUE: Imaging protocol: XR of the chest. Views: 1 view. COMPARISON: CR XR chest 1V portable [id number] 04/08/2021 12:10 PM FINDINGS: Tubes, catheters and devices: Aortic valve prosthesis is in place. Lungs: Stable bilateral pulmonary opacities. Pleural spaces: Unremarkable. No pleural effusion. No pneumothorax. Heart/Mediastinum: Unremarkable. No cardiomegaly. Bones/joints: Unremarkable. XR/XR chest 1V portable [id number] IMPRESSION: Stable bilateral pulmonary opacities.
[2021-04-09 07:21] LABS: Basophils # 0.1 10^3/uL (0.0-0.1); Basophils % 0.6 %; Hematocrit 45.7 % (42.0-52.0); Hemoglobin 14.9 g/dL (11.7-16.6); Lymphocytes # 0.5 10^3/uL (0.8-4.8); Lymphocytes % 5.9 %; Mean Corpuscular HGB Conc 32.6 g/dL (30.0-36.0); Mean Corpuscular Hemoglobin 31.4 pg (28.0-34.0); Mean Corpuscular Volume 96.4 fL (80-94); Mean Platelet Volume 10.7 fL (7.4-10.4); Monocytes # 0.4 10^3/uL (0.2-0.9); Monocytes % 4.2 %; Neutrophils # 7.56 10^3/uL (1.8-7.7); Neutrophils % 84.3 %; Nucleated Red Blood Cells % 0 %; Platelet Count 351 10^3/cmm (130-400); Red Blood Count 4.74 10^6/uL (4.1-5.3); Red Cell Distribution Width 11.7 % (12.1-15.1)
[2021-04-09 07:34] LABS: D Dimer 1.07 ug/mIFEU (0-0.59)
[2021-04-09 07:44] LABS: C Reactive Protein 49.4 mg/L (0.0-4.9); Chol HDL Ratio 3.74 mg/dL (1.0-5.00); Cholesterol 157 mg/dL (0-200); Creatine Phosphokinase 30 U/L (39-308); HDL Cholesterol 42 mg/dL (60-100); LDL Cholesterol Calculated 96 mg/dL (50-129); LDL HDL Ratio 2.29 RATIO (0.00-3.22); Triglycerides 94 mg/dL (0-150)
[2021-04-09 07:56] LABS: Alanine Aminotransferase 28 U/L (0-41); Albumin Level 2.9 g/dL (3.5-5.2); Alkaline Phosphatase 81 IU/L (40-130); Anion Gap 13.8 (5-19); Aspartate Amino Transferase 25 U/L (0-40); Blood Urea Nitrogen 22 mg/dL (8-23); Carbon Dioxide 28 mmol/L (22-29); Chloride 102 mmol/L (98-107); Globulin 3.2 g/dL (1.3-4.6); Glucose 103 mg/dL (65-115); Magnesium 2.2 mg/dL (1.7-2.3); Osmolality Calculated 294 mOsm/kg (285-295); Phosphorus 4.1 mg/dL (2.5-4.5); Potassium 3.8 mmol/L (3.5-5.1); Sodium 140 mmol/L (136-145); Total Bilirubin 0.4 mg/dL (0.15-1.2); Total Protein 6.1 g/dL (6.6-8.7)
[2021-04-09] MEDS: budesonide 0.5 mg/2 mL Neb INHALATION ×2 (08:52→21:18)
[2021-04-09 08:56] LABS: Erythrocyte Sedimentation Rate 41 mm/hr (0-10)
[2021-04-09] MEDS: zinc gluconate 50 mg Tablet PO (09:33)
[2021-04-09] MEDS: ferrous gluconate 324 mg Tablet PO ×2 (09:33→16:57)
[2021-04-09] MEDS: benzonatate 100 mg Capsule PO ×3 (09:33→22:37)
[2021-04-09] MEDS: ascorbic acid 500 mg Tablet 1000 MG PO ×2 (10:28→16:57)
[2021-04-09] MEDS: enoxaparin 80 mg/0.8 mL Syringe SUBCUT ×2 (10:28→22:36)
--- NOTE | 2021-04-09 12:32 | PM.PN ---
Subjective Subjective: Interval history: No acute events overnight. Patient states he is feeling better. He is currently on 40 L 40% heated high flow saturating 92%. He states he has been having occasional feeling of fluttering in his chest when he feels his heart rate is running very high and then settles down. He denies any nausea, vomiting, headache, dizziness. Patient has sinus rhythm with occasional atrial tachycardia on telemetry. Vitals/I&O/Wt Last Vital Signs Temp 98.7 F 04/09/21 08:00 Pulse 88 04/09/21 11:50 Resp 18 04/09/21 11:50 BP 133/84 04/09/21 08:00 Pulse Ox 94 04/09/21 11:50 04/08/21 04/09/21 04/09/21 22:59 06:59 14:59 Intake Total 1050 / 1150 290 / 290 Output Total 300 / 300 Balance 750 / 850 290 / 290 Weight last 48 hrs Weight 55.962 kg Weight 55.962 kg Weight 81.647 kg Physical Exam Narrative: EXAM NARRATIVE: General: No acute distress, AO x3, dehydrated, hard of hearing. HEENT: PERRLA, pupils bilaterally equal and reactive Chest: Normal vesicular breath sounds, no added sounds, equal good air entry bilaterally CVS: S1-S2 regular, no murmurs, no tachycardia, no gallops, no rubs Abdomen: Soft, nontender, no organomegaly, bowel sounds present Neuro: No focal deficits, no facial deformity, AO x3, power 5/5 in all limbs Data : 04/09/21 06:22 04/09/21 06:22 Micro: Microbiology 04/08/21 18:50 Legionella Urinary Antigen - Final Urine Catheterized 04/08/21 18:50 Bacterial Antigens - Final Urine Kidney 04/08/21 18:16 Blood Culture - Preliminary Blood SPECIMEN COLLECTED 04/08/21 18:12 Blood Culture - Preliminary Blood SPECIMEN COLLECTED A&P Assessment and plan (1) ARDS (adult respiratory distress syndrome): Status: Acute (2) COVID-19: Status: Acute Additional A&P Information ARDS secondary to COVID-19 pneumonia: Severe disease. Seems to be improving. PF ratio appreciated on the ABG. Wean oxygen supplementation keeping saturation over 88%. Dexamethasone 6 mg daily. Remdesivir to finish a 5-day course. Vitamin C, zinc. DuoNebs every 6 hour, budesonide twice daily Pulmonary toilet with incentive spirometry flutter valve. We will monitor inflammatory markers including ferritin, ESR, CRP, D-dimer, fibrinogen. If getting elevated will dose Actemra. Patient was made aware of the same and he has given verbal consent. D-dimer elevated. CTA negative for pulmonary embolism. For now we will start patient on full dose anticoagulation as patient requiring high oxygen supplementation. Will monitor for anemia or blood loss. Pro-Jon mildly elevated on admission. Urine Legionella, bacterial antigen negative. MRSA pending. Blood cultures have remained preliminary negative. As patient is requiring high oxygen supplementation for now start patient on zosyn and azithromycin to cover for possible aspiration pneumonia and atypical coverage. If MRSA comes back positive we will add vancomycin. Given hypoxia will try to keep patient as negative as possible. Patient clinically dehydrated for now. For now continue with gentle hydration. IVF with normal saline 50 cc/h. Strict input output charting, daily weights. Check echocardiogram. Continue other chronic medications. Will try and call patient's primary's office for further medical history. Tachycardia: Subjective feeling. Continue with telemetry. Start patient on metoprolol 12.5 mg twice daily. Will monitor for atrial fibrillation or multifocal atrial tachycardia. Patient does not have any history of atrial fibrillation in the past. Full code. Regular diet. Full dose Lovenox will help with DVT prophylaxis as well. Attestations Medical Necessity Statement*: Requires further hospitalization for management of ARDS secondary COVID-19 pneumonia requiring heated high flow Time Spent in Patient Care: Greater than 35 minutes (>than 50% of time spent in counselling and/or direct pt care on unit). Coding Level of Care Code Acute Superintendent Communications for Irena Herrera Diagnoses ARDS (adult respiratory distress syndrome) J80 COVID-19 U07.1
[2021-04-09 13:55] LABS: Thyroid Stimulating Hormone 1.88 uIU/mL (0.27-4.20)
[2021-04-09 14:15] LABS: Coronavirus Test Green County Detected
--- NOTE | 2021-04-09 15:28 | PC.NURSE ---
0700 Report received, assessment completed. Pt resting in bed, no s/s of pain or SOB noted. Remains on HHFNC 30L/40%. Very [facility] [facility]. ABT infusing per orders. Uses urinal. PT c/o feeling heart racing and skipping , placed pt on telemetry. NSR noted with some atrial tach. notified. Metoprolol ordered. No other issues noted. Will monitor. 1100 No other episodes reported. Will monitor.
--- NOTE | 2021-04-09 15:56 | ECG_ITS ---
[facility] Test Date: 2021-04-09 Pat Name: Scot Molina Department: Room: 202 Gender: Male Energy Management Specialist: : 1940 Requested By: Luke Dawkins Order Number: [id number] Jeferson MD: Deborah Judd M.D. Measurements Intervals [place] Rate: 182 P: VA: QRS: -61 QRSD: 93 T: 81 QT: 227 QTc: 395 Interpretive Statements ATRIAL FIBRILLATION WITH RAPID VENTRICULAR RESPONSE INCOMPLETE RIGHT BUNDLE BRANCH BLOCK [90+ ms QRS DURATION, TERMINAL R IN V1/V2, 40+ ms S IN I/aVL/V4/V5/V6] LEFT ANTERIOR FASCICULAR BLOCK [QRS AXIS <= -45, QR IN I, RS IN II] NONSPECIFIC ST & T-WAVE ABNORMALITY CRITICAL TEST RESULT Compared to ECG 04/08/2021 12:35:36 T-wave abnormality now present Sinus rhythm no longer present Electronically Signed On 04-09-2021 18:21:41 CDT by Deborah Judd M.D. [id number]
[2021-04-09] MEDS: metoprolol tartrate 1 mg/1 mL SDV 5 mL 5 MG IVP (16:05)
[2021-04-09] MEDS: dilTIAZem 30 mg Tablet PO ×2 (16:28→22:35)
[2021-04-09] MEDS: metoprolol tartrate 1 mg/1 mL SDV 5 mL 2.5 MG IVP (16:56)
[2021-04-09] MEDS: remdesivir 100 MG in sodium chloride 0.9% (100 ml) 100 ML IV (16:58)
--- NOTE | 2021-04-09 18:09 | PC.RESP ---
RT Shift Note Frequent safety and respiratory rounds continue. Orders completed as indicated. Patient monitored pre and post treatments throughout shift. Patient tolerated treatments appropriately. Condition did not change. Patient and/or business representative educated on respiratory treatment and medications. Patient and/or business representative verbalized understand but could use reinforcement. Will continue to monitor patient progress.
--- NOTE | 2021-04-09 18:25 | PC.NURSE ---
Shift Note Frequent safety and comfort rounds continue. Orders and/or nursing care completed as indicated. Patient monitored for response to intervention and treatment(s). Education provided includes treatment plan, medications. Pt states that family wants him to sign out of hospital and leave in order to go to a different hospital. Advised pt that he is receiving proper care here and that he needs to stay. He verbalizes understanding. Will notify MD of situation. HR 79 at this time. All other VSS, remains on HHFNC. Will continue to monitor.
[2021-04-09] MEDS: sodium chloride 0.9% 1,000 ML 50 ML IV (18:42)
--- NOTE | 2021-04-09 19:31 | PC.NURSE ---
rounded on pt. pt wanted is gown fixed, water, his urinal was emptied, fan was turned off and he was covered up.
[2021-04-09] MEDS: aspirin 81 mg EC Tablet PO (22:36)
--- NOTE | 2021-04-09 23:53 | PC.NURSE ---
pt wanting to go home during med pass and exam. says his heart doesn't 'flutter' at home. he doesn't 'feel this way at home' this nurse educated pt that he can't safely be discharged home.
[2021-04-10] VITALS (13 sets, daily range): BP systolic 94–138; BP diastolic 64–93; PULSE 60–96; RESP 12–21; TEMP 36.6–36.8; O2SAT 91–98
--- NOTE | 2021-04-10 01:33 | PC.NURSE ---
pt wide awake at this time.
[2021-04-10] MEDS: ipratropium-albuterol 3 mL Neb INHALATION ×4 (02:30→20:40)
[2021-04-10] MEDS: piperacillin-tazobactam 3.375 GM in sodium chloride 0.9% (plus) 50 ML IV ×3 (03:27→18:47)
--- NOTE | 2021-04-10 03:39 | PC.NURSE ---
pt adamant about leaving
[2021-04-10] MEDS: ALPRAZolam 0.5 mg Tablet PO (03:54)
--- NOTE | 2021-04-10 04:52 | PC.NURSE ---
pt was in and out of afib all night. dr dailey made aware and parameters were given to watch.
--- NOTE | 2021-04-10 04:53 | PC.NURSE ---
pt does not want to be here.
[2021-04-10] MEDS: dexamethasone 4 mg/mL INJ 6 MG IVP (05:25)
[2021-04-10] MEDS: famotidine 20 mg/2 mL INJ IVP ×2 (05:29→18:16)
[2021-04-10 07:01] LABS: Basophils % 0.2 %; Lymphocytes # 0.7 10^3/uL (0.8-4.8); Lymphocytes % 5.6 %; Mean Corpuscular HGB Conc 32.5 g/dL (30.0-36.0); Mean Corpuscular Hemoglobin 31.8 pg (28.0-34.0); Mean Corpuscular Volume 97.8 fL (80-94); Mean Platelet Volume 10.4 fL (7.4-10.4); Monocytes # 0.7 10^3/uL (0.2-0.9); Monocytes % 6.3 %; Neutrophils # 9.89 10^3/uL (1.8-7.7); Neutrophils % 84.3 %; Nucleated Red Blood Cells % 0 %; Platelet Count 331 10^3/cmm (130-400); Red Blood Count 4.09 10^6/uL (4.1-5.3); Red Cell Distribution Width 11.9 % (12.1-15.1); White Blood Count 11.7 10^3/uL (4.0-10.0)
[2021-04-10 07:18] LABS: D Dimer 0.69 ug/mIFEU (0-0.59)
[2021-04-10 07:24] LABS: Alanine Aminotransferase 21 U/L (0-41); Albumin Level 2.6 g/dL (3.5-5.2); Alkaline Phosphatase 80 IU/L (40-130); Anion Gap 13.7 (5-19); Aspartate Amino Transferase 18 U/L (0-40); Blood Urea Nitrogen 16 mg/dL (8-23); Calcium 7.5 mg/dL (8.5-10.5); Carbon Dioxide 26 mmol/L (22-29); Chloride 104 mmol/L (98-107); Globulin 2.5 g/dL (1.3-4.6); Glucose 108 mg/dL (65-115); Osmolality Calculated 292 mOsm/kg (285-295); Potassium 3.7 mmol/L (3.5-5.1); Sodium 140 mmol/L (136-145); Total Bilirubin 0.4 mg/dL (0.15-1.2); Total Protein 5.1 g/dL (6.6-8.7)
[2021-04-10 07:26] LABS: C Reactive Protein 23.6 mg/L (0.0-4.9); Creatine Phosphokinase 41 U/L (39-308)
[2021-04-10] MEDS: budesonide 0.5 mg/2 mL Neb INHALATION ×2 (08:50→20:41)
[2021-04-10] MEDS: zinc gluconate 50 mg Tablet PO (09:28)
[2021-04-10] MEDS: ascorbic acid 500 mg Tablet 1000 MG PO ×2 (09:29→17:27)
[2021-04-10] MEDS: benzonatate 100 mg Capsule PO ×3 (09:29→21:02)
[2021-04-10] MEDS: ferrous gluconate 324 mg Tablet PO ×2 (09:29→17:27)
[2021-04-10] MEDS: dilTIAZem 30 mg Tablet PO ×4 (09:29→21:02)
[2021-04-10] MEDS: duloxetine 30 mg Capsule PO (09:31)
--- NOTE | 2021-04-10 10:51 | PC.CHAP ---
Pastoral Care Encounter/Spiritual Assessment Type of Contact [] Declined certified nurse operating room visit [] Patient/Family/Request visit [] Outpatient visit [] Follow-up visit [] Physician referral [] Code/Alert [x] Routine visit [] Staff referral [] Actively dying [] Patient sleeping [] Family support [] [] Out of room [] Palliative care [] [] Receiving care in room [] Pre-surgical visit [] Trauma [] Long length of stay [] ICU visit [x] Other: 2A Relational/Emotional Strength [] Patient feels connected with others/family/visitors/staff [] Distress [] Loneliness/isolation [] Abandonment Spirituality of Patient [] Person of Le [] Attends Jewish of their Le [] Believes in Prayer [] Reads Bible or Church materials [] There are Spiritual issues to be addressed Bar Machine Operator Interventions [x] Prayer [] Active listening [] Non-anxious presence [] Spiritual/emotional support [] Crisis/trauma care [] Spiritual counseling [] Bereavement support [] Provided bereavement packet [] Provided Bible/devotional materials [] Provided toy/stuffed animal, coloring book to patient or family member [] Provided Communion [] Anointing/[place] [] Salvation [x] Completed spiritual assessment [] Other: Impact on Illness or Injury [] Angry [] Fearful [] Anxious [] Often cries [] Exhaustion [] Unable to work [] Unable to attend druze [] Unable to walk/stand [] Unable to read [] Unable to drive [] Unable to eat/drink [] Unable to sleep [] Unable to be with family [] Patient intubated [] Other: Summary Time spent with patient
[2021-04-10] MEDS: enoxaparin 80 mg/0.8 mL Syringe SUBCUT ×2 (11:32→23:23)
--- NOTE | 2021-04-10 13:07 | P.PN_ITS ---
Subjective Subjective: Interval history: Overnight patient had an event of mild delirium for which he required Xanax. Likely secondary to patient being really hard of hearing. Today morning on examination he is on 30 L 30% saturating 94%. Plan to transition him down to regular high flow nasal cannula. He states he has had hard of hearing problem for a long time and it seems more as if the sound is echoing in his ear. Patient feels better when you talk to him slowly and loudly as he can understand better. Complaining of feeling tightness in his chest today. Vitals/I&O/Wt Last Vital Signs Temp 98.3 F 04/10/21 08:00 Pulse 70 04/10/21 08:50 Resp 18 04/10/21 08:50 BP 119/76 04/10/21 08:00 Pulse Ox 94 04/10/21 08:50 04/09/21 04/10/21 04/10/21 22:59 06:59 14:59 Intake Total 1820 / 2640 50 / 2690 170 / 170 Output Total 300 / 300 250 / 550 Balance 1520 / 2340 -200 / 2140 170 / 170 Weight last 48 hrs Weight 54.839 kg Weight 55.962 kg Weight 55.962 kg Physical Exam Narrative: EXAM NARRATIVE: General: No acute distress, AO x3, dehydrated, hard of hearing. HEENT: PERRLA, pupils bilaterally equal and reactive Chest: Normal vesicular breath sounds, no added sounds, equal good air entry bilaterally CVS: S1-S2 regular, no murmurs, no tachycardia, no gallops, no rubs Abdomen: Soft, nontender, no organomegaly, bowel sounds present Neuro: No focal deficits, no facial deformity, AO x3, power 5/5 in all limbs Data : 04/10/21 06:10 04/10/21 06:10 Micro: Microbiology 04/08/21 18:16 Blood Culture - Preliminary Blood NEGATIVE TO DATE 04/08/21 18:12 Blood Culture - Preliminary Blood NEGATIVE TO DATE 04/08/21 18:50 Legionella Urinary Antigen - Final Urine Catheterized 04/08/21 18:50 Bacterial Antigens - Final Urine Kidney A&P Assessment and plan (1) ARDS (adult respiratory distress syndrome): Status: Acute (2) COVID-19: Status: Acute (3) Paroxysmal A-fib: Status: Acute (4) H/O aortic valve replacement: Status: Acute Additional A&P Information ARDS secondary to COVID-19 pneumonia: Severe disease. Seems to be improving. PF ratio appreciated on the ABG. Wean oxygen supplementation keeping saturation over 88%. Dexamethasone 6 mg daily. Remdesivir to finish a 5-day course. Vitamin C, zinc. DuoNebs every 4 hour, budesonide twice daily Pulmonary toilet with incentive spirometry flutter valve. We will monitor inflammatory markers including ferritin, ESR, CRP, D-dimer, fibrinogen. Inflammatory markers trending down with CRP down to 23.6 from 49.4 yesterday. If getting elevated will dose Actemra. Patient was made aware of the same and he has given verbal consent. D-dimer elevated but improving.. CTA negative for pulmonary embolism. For now we will continue patient on full dose anticoagulation as patient requiring high oxygen supplementation. Will monitor for anemia or blood loss. Procalcitonin negative now. Urine Legionella, bacterial antigen negative. MRSA pending. Blood cultures have remained preliminary negative. As patient is requiring high oxygen supplementation for now continue zosyn to cover for possible aspiration pneumonia. If MRSA comes back positive we will add vancomy jelly. Given hypoxia will try to keep patient as negative as possible. Patient is euvolemic now. Stop IV fluids. Strict input output charting, daily weights. Check echocardiogram. Continue other chronic medications. Paroxysmal atrial fibrillation. Currently in sinus rhythm rate controlled. Continue with Cardizem 30 mg p.o. 4 times daily. Continue with telemetry. Already on full dose anticoagulation for Covid. Full code. Regular diet. Full dose Lovenox will help with DVT prophylaxis as well. PT/OT evaluation. Attestations Medical Necessity Statement*: Requires further hospitalization for management of ARDS from COVID-19 pneumonia requiring high oxygen supplementation. Time Spent in Patient Care: Greater than 35 minutes Coding Level of Care Code Acute Senior Microsoft Consultant for [facility] Diagnoses ARDS (adult respiratory distress syndrome) J80 COVID-19 U07.1 Paroxysmal A-fib I48.0 H/O aortic valve replacement Z95.2
--- NOTE | 2021-04-10 13:12 | USCV_ITS ---
Scot Molina Age: 80 Gender: M : 1940 Exam Date: 04/10/2021 16:16 Ordering Phys: Luke Dawkins MD Technologist: Jolene Rg Exam Location: [facility] [place] Indication: H/O AVR, CHF, ARDS, COVID, A-FIB BP: 103 / 58 HR: 64 Rhythm: Atrial fibrillation Technical Quality: Adequate MEASUREMENTS (Male / Female) Normal Values 2D ECHO LV Diastolic Diameter PLAX 3.8 cm 4.2 - 5.9 / 3.9 - 5.3 cm LV Systolic Diameter PLAX 2.9 cm IVS Diastolic Thickness 1.4 cm 0.6 - 1.0 / 0.6 - 0.9 cm IVS Systolic Thickness 1.8 cm LVPW Diastolic Thickness 1.1 cm 0.6 - 1.0 / 0.6 - 0.9 cm LVPW Systolic Thickness 1.3 cm LVOT Diameter 2.0 cm LV Ejection Fraction 2D Teich 47.0 % LV Ejection Fraction MOD 2C 40.4 % LV Ejection Fraction 2C AL 41.0 % LA Diameter 2.5 cm LA Width 2.8 cm LA Height 3.8 cm RA Width 4.1 cm RA Height 4.8 cm Aorta at Sinotubular Diameter 1.4 cm DOPPLER AV Peak Velocity 197.0 cm/s LVOT Peak Velocity 95.0 cm/s AV Area Cont Eq vti 1.6 cm squared AV Area Cont Eq pk 1.6 cm squared MV Area PHT 4.3 cm squared MV E' Velocity 37.5 cm/s Mitral E to MV E' Ratio 7.1 Mitral E to LV E' Lateral Ratio 6.2 Mitral E to LV E' Septal Ratio 8.3 TR Peak Velocity 206.9 cm/s TR Peak Gradient 17.1 mmHg TR Mean Velocity 189.1 cm/s TR Mean Gradient 15.1 mmHg TR Velocity Time Integral 74.1 cm TV Peak E Velocity 52.0 cm/s Right Atrial Pressure 3.0 mmHg Pulmonary Artery Systolic Pressu 20.1 mmHg PV Peak Velocity 104.0 cm/s RV Acceleration Time 0.1 s RV Ejection Time 0.3 s RV AcT/ET 0.2 FINDINGS Left Ventricle Normal left ventricular cavity size. Normal left ventricular systolic function. No regional wall motion abnormalities. Left ventricular ejection fraction is estimated at 55 %. Grade I/IV diastolic dysfunction (abnormal relaxation filling pattern), normal to mildly elevated filling pressures. Right Ventricle The right ventricle is normal in size and function. Right Atrium The right atrium is normal in size. Left Atrium The left atrium is normal in size. Mitral Valve Mildly thickened mitral valve. No mitral valve stenosis. Trace mitral valve regurgitation. Aortic Valve Bioprosthetic aortic valve sitting in normal condition without significant valvular regurgitation or stenosis. Tricuspid Valve Mild tricuspid valve regurgitation. There appeared to be echogenic mass noted in the right atrium which may disappear in certain views raises a question regarding artifact versus vegetation. Clinical correlation advised. Pulmonic Valve Mild pulmonary valve regurgitation. Pericardium Normal pericardium without effusion. Aorta Normal ascending aorta dimension. CONCLUSIONS 1-Normal left ventricular cavity size. Normal left ventricular systolic function. No regional wall motion abnormalities. Left ventricular ejection fraction is estimated at 55 %. Grade I/IV diastolic dysfunction (abnormal relaxation filling pattern), normal to mildly elevated filling pressures. 2-Bioprosthetic aortic valve sitting in normal condition without significant valvular regurgitation or stenosis. 3-Mild tricuspid valve regurgitation. There appeared to be echogenic mass noted in the right atrium which may disappear in certain views raises a question regarding artifact versus vegetation. Clinical correlation advised. 4-There is no pericardial effusion. 5-Pulmonary artery systolic pressure is within normal limits. 6-Right atrial pressure is around 5 mm of mercury. 7-There are no prior echocardiogram studies to compare. Kaitlin Maldonado MD (Electronically Signed) Final Date: 11 April 2021 19:23 S
--- NOTE | 2021-04-10 16:45 | PC.NURSE ---
Shift Note Frequent safety and comfort rounds continue. Orders and/or nursing care completed as indicated. Patient monitored for response to intervention and treatment(s). Education provided includes oxygen safety, fall risk, incentive spriometer and flutter valve use. Patient and/or medical claims representative reinforcement needed but verbalized understanding. Will continue to monitor.
[2021-04-10] MEDS: remdesivir 100 MG in sodium chloride 0.9% (100 ml) 100 ML IV (17:27)
--- NOTE | 2021-04-10 17:36 | PC.RESP ---
RT Shift Note Frequent safety and respiratory rounds continue. Orders completed as indicated. Patient monitored pre and post treatments throughout shift. Patient tolerated treatments appropriately. Condition did not change. Patient and/or b2b sales representative educated on respiratory treatment and medications. Patient and/or b2b sales representative verbalized understanding of teaching. Will continue to monitor patient progress.
--- NOTE | 2021-04-10 20:43 | PC.RESP ---
RT Shift Note Frequent safety and respiratory rounds continue. Orders completed as indicated. Patient monitored pre and post treatments throughout shift. Patient [Did.] tolerate treatments appropriately. Condition [Improved.]. Patient and/or player services representative educated on respiratory treatment and medications. Patient and/or player services representative [ResponseToTeaching]. Will continue to monitor patient progress.
[2021-04-10] MEDS: aspirin 81 mg EC Tablet PO (21:02)
--- NOTE | 2021-04-10 22:52 | PC.RESP ---
RT Shift Note Frequent safety and respiratory rounds continue. Orders completed as indicated. Patient monitored pre and post treatments throughout shift. Patient [Did] tolerate treatments appropriately. Condition [.DidNotChange]. Patient and/or sales representative raw fibers educated on respiratory treatment and medications. Patient and/or sales representative raw fibers [ResponseToTeaching]. Will continue to monitor patient progress.
[2021-04-11] VITALS (16 sets, daily range): BP systolic 110–129; BP diastolic 72–78; PULSE 55–77; RESP 16–20; TEMP 36.5–37; O2SAT 92–96
[2021-04-11] MEDS: piperacillin-tazobactam 3.375 GM in sodium chloride 0.9% (plus) 50 ML IV ×3 (03:25→18:19)
[2021-04-11] MEDS: ipratropium-albuterol 3 mL Neb INHALATION ×5 (04:00→19:51)
--- NOTE | 2021-04-11 06:00 | XR_ITS ---
WS: [id number] Portable AP upright chest, 04/11/2021 Clinical Data: covid Comparison: Portable chest, 04/09/2021. Findings: The bilateral pulmonary opacities remain the same. The heart is enlarged. The aortic arch s hows calcification and tortuosity. There are small surgical clips between the medial clavicular borde rs. There is an artificial heart valve. Monitor leads on the chest wall. XR/XR chest 1V portable [id number] Impression: 1. No change in bilateral pulmonary opacities consistent with pneumonia. 2. Cardiomegaly and atherosclerosis.
[2021-04-11] MEDS: dexamethasone 4 mg/mL INJ 6 MG IVP (06:01)
[2021-04-11] MEDS: famotidine 20 mg/2 mL INJ IVP ×2 (06:01→17:22)
[2021-04-11 07:14] LABS: Basophils % 0.2 %; Hematocrit 40.4 % (42.0-52.0); Hemoglobin 13.2 g/dL (11.7-16.6); Lymphocytes # 0.6 10^3/uL (0.8-4.8); Lymphocytes % 4.3 %; Mean Corpuscular HGB Conc 32.7 g/dL (30.0-36.0); Mean Corpuscular Hemoglobin 31.8 pg (28.0-34.0); Mean Corpuscular Volume 97.3 fL (80-94); Mean Platelet Volume 10.3 fL (7.4-10.4); Monocytes # 0.7 10^3/uL (0.2-0.9); Monocytes % 5.1 %; Neutrophils # 11.46 10^3/uL (1.8-7.7); Neutrophils % 87.6 %; Nucleated Red Blood Cells % 0 %; Platelet Count 361 10^3/cmm (130-400); Red Blood Count 4.15 10^6/uL (4.1-5.3); Red Cell Distribution Width 12.1 % (12.1-15.1); White Blood Count 13.1 10^3/uL (4.0-10.0)
[2021-04-11 07:17] LABS: D Dimer 0.56 ug/mIFEU (0-0.59)
[2021-04-11 07:22] LABS: Alanine Aminotransferase 23 U/L (0-41); Albumin Level 2.7 g/dL (3.5-5.2); Alkaline Phosphatase 71 IU/L (40-130); Anion Gap 12.3 (5-19); Aspartate Amino Transferase 17 U/L (0-40); Blood Urea Nitrogen 21 mg/dL (8-23); Calcium 7.7 mg/dL (8.5-10.5); Carbon Dioxide 24 mmol/L (22-29); Chloride 106 mmol/L (98-107); Globulin 2.4 g/dL (1.3-4.6); Glucose 94 mg/dL (65-115); Osmolality Calculated 289 mOsm/kg (285-295); Potassium 4.3 mmol/L (3.5-5.1); Sodium 138 mmol/L (136-145); Total Bilirubin 0.4 mg/dL (0.15-1.2); Total Protein 5.1 g/dL (6.6-8.7)
[2021-04-11 07:27] LABS: C Reactive Protein 12.9 mg/L (0.0-4.9); Creatine Phosphokinase 42 U/L (39-308)
[2021-04-11] MEDS: ferrous gluconate 324 mg Tablet PO ×2 (08:14→17:22)
[2021-04-11] MEDS: dilTIAZem 30 mg Tablet PO ×4 (08:14→21:19)
[2021-04-11] MEDS: duloxetine 30 mg Capsule PO (08:14)
[2021-04-11] MEDS: benzonatate 100 mg Capsule PO ×3 (08:14→21:19)
[2021-04-11] MEDS: zinc gluconate 50 mg Tablet PO (08:14)
[2021-04-11] MEDS: budesonide 0.5 mg/2 mL Neb INHALATION ×2 (08:35→19:50)
[2021-04-11 08:59] LABS: Erythrocyte Sedimentation Rate 20 mm/hr (0-10)
[2021-04-11] MEDS: ascorbic acid 500 mg Tablet PO ×2 (09:06→17:25)
[2021-04-11] MEDS: enoxaparin 80 mg/0.8 mL Syringe SUBCUT ×2 (11:14→23:30)
--- NOTE | 2021-04-11 14:11 | PC.SOCIAL ---
IMM update IMM updated with via telephone. Verbalized an understanding. Initialled, dated, timed, and placed in chart.
--- NOTE | 2021-04-11 16:44 | P.PN_ITS ---
Subjective Subjective: Interval history: No events overnight. Patient doing really well. Out down to 3 L saturating 95%. Able to ambulate in the room. Denies any nausea vomiting, headache. Asking when can he go home. Working well with incentive/spirometry and flutter valve. Working with physical therapy. Vitals/I&O/Wt Last Vital Signs Temp 97.8 F 04/11/21 16:00 Pulse 77 04/11/21 16:00 Resp 17 04/11/21 16:00 BP 110/75 04/11/21 16:00 Pulse Ox 95 04/11/21 16:00 04/11/21 04/11/21 04/11/21 06:59 14:59 22:59 Intake Total 50 / 2038.333 50 / 50 50 / 100 Output Total 800 / 800 Balance -750 / 1238.333 50 / 50 50 / 100 Weight last 48 hrs Weight 55.656 kg Weight 54.839 kg Physical Exam Narrative: EXAM NARRATIVE: General: No acute distress, AO x3, dehydrated, hard of hearing. HEENT: PERRLA, pupils bilaterally equal and reactive Chest: Normal vesicular breath sounds, no added sounds, equal good air entry bilaterally CVS: S1-S2 regular, no murmurs, no tachycardia, no gallops, no rubs Abdomen: Soft, nontender, no organomegaly, bowel sounds present Neuro: No focal deficits, no facial deformity, AO x3, power 5/5 in all limbs Data : 04/11/21 05:45 04/11/21 05:45 Micro: Microbiology 04/08/21 13:58 MRSA Culture - Final Nose A&P Assessment and plan (1) Hypoxia: Status: Acute (2) ARDS survivor: Status: Acute (3) COVID-19: Status: Acute (4) Paroxysmal A-fib: Status: Acute (5) H/O aortic valve replacement: Status: Acute Additional A&P Information ARDS secondary to COVID-19 pneumonia: Improved. Down to 3 L. PF ratio appreciated on the ABG. Wean oxygen supplementation keeping saturation over 88%. Dexamethasone 6 mg daily. Remdesivir to finish a 5-day course. Vitamin C, zinc. DuoNebs every 4 hour, budesonide twice daily Pulmonary toilet with incentive spirometry flutter valve. We will monitor inflammatory markers including ferritin, ESR, CRP, D-dimer, fibrinogen. Inflammatory markers trending down. D-dimer elevated but normalized now. CTA negative for pulmonary embolism. For now we will continue patient on full dose anticoagulation as patient requiring high oxygen supplementation. Patient will need anticoagulation on discharge because of paroxysmal atrial fibrillation. Procalcitonin negative now. Urine Legionella, bacterial antigen negative. MRSA pending. Blood cultures have remained preliminary negative. As patient is requiring high oxygen supplementation for now continue zosyn to cover for p ossible aspiration pneumonia. As patient is improving for now continue with Zosyn. Will discharge patient on oral antibiotic for aspiration pneumonia to finish off a 7-day course Given hypoxia will try to keep patient as negative as possible. Patient is euvolemic now. Strict input output charting, daily weights. Echocardiogram done but results awaited Continue other chronic medications. Paroxysmal atrial fibrillation. Currently in sinus rhythm rate controlled. Continue with Cardizem 30 mg p.o. 4 times daily. Continue with telemetry. Already on full dose anticoagulation for Covid. Full code. Regular diet. Full dose Lovenox will help with DVT prophylaxis as well. PT/OT evaluation. Attestations Medical Necessity Statement*: Requires further hospitalization for management of resolving ARDS secondary to COVID-19 pneumonia while he finishes remdesivir course. Time Spent in Patient Care: Greater than 35 minutes (>than 50% of time spent in counselling and/or direct pt care on unit) . Coding Level of Care Code Acute [employer] Community Relations Coordinator for Irena Herrera Diagnoses Hypoxia R09.02 ARDS survivor Z87.09 COVID-19 U07.1 Paroxysmal A-fib I48.0 H/O aortic valve replacement Z95.2
[2021-04-11] MEDS: remdesivir 100 MG in sodium chloride 0.9% (100 ml) 100 ML IV (17:22)
[2021-04-11] MEDS: aspirin 81 mg EC Tablet PO (21:19)
--- NOTE | 2021-04-11 22:05 | PC.RESP ---
RT Shift Note Frequent safety and respiratory rounds continue. Orders completed as indicated. Patient monitored pre and post treatments throughout shift. Patient [Did. tolerate treatments appropriately. Condition .DidNotChange]. Patient and/or dealer compliance representative educated on respiratory treatment and medications. Patient and/or dealer compliance representative [ResponseToTeaching]. Will continue to monitor patient progress.
[2021-04-12] VITALS (7 sets, daily range): BP systolic 120–136; BP diastolic 74–86; PULSE 62–68; RESP 18–22; TEMP 36.1–36.5; O2SAT 82–95
[2021-04-12] MEDS: piperacillin-tazobactam 3.375 GM in sodium chloride 0.9% (plus) 50 ML IV ×2 (02:22→11:49)
[2021-04-12] MEDS: ipratropium-albuterol 3 mL Neb INHALATION ×2 (03:43)
[2021-04-12] MEDS: famotidine 20 mg/2 mL INJ IVP (05:09)
[2021-04-12] MEDS: dexamethasone 4 mg/mL INJ 6 MG IVP (05:10)
--- NOTE | 2021-04-12 06:41 | PC.NURSE ---
Shift Note Frequent safety and comfort rounds continue. Orders and/or nursing care completed as indicated. Patient monitored for response to intervention and treatment(s). Education provided includes medications given. Patient and/or patient registration representative verbalized understanding and was will to take medications. Will continue to monitor.
[2021-04-12] MEDS: zinc gluconate 50 mg Tablet PO (09:07)
[2021-04-12] MEDS: duloxetine 30 mg Capsule PO (09:07)
[2021-04-12] MEDS: dilTIAZem 30 mg Tablet PO ×2 (09:07→13:35)
[2021-04-12] MEDS: ascorbic acid 500 mg Tablet PO (09:07)
[2021-04-12] MEDS: ferrous gluconate 324 mg Tablet PO (09:07)
[2021-04-12] MEDS: benzonatate 100 mg Capsule PO (09:07)
[2021-04-12] MEDS: enoxaparin 80 mg/0.8 mL Syringe SUBCUT (11:49)
--- NOTE | 2021-04-12 11:52 | P.DS_ITS ---
Discharge Providers Date of Admission: 04/08/21 18:22 Date of Discharge: April 12, 2021 Attending Provider at Admission: Luke Dawkins MD Attending Provider at Discharge: Luke Dawkins MD Primary Care Provider: Marcelo Thao DO Diagnoses at Discharge Discharge Diagnosis (1) Hypoxia: Status: Acute (2) ARDS survivor: Status: Acute (3) COVID-19: Status: Acute (4) Paroxysmal A-fib: Status: Acute (5) H/O aortic valve replacement: Status: Acute Reason for Visit Reason for Visit: COVID +/LOW O2 Hospital Course Hospital Course History taken through chart review. Patient is extremely hard of hearing and becomes tachypneic when talking. Scot Molina is a 80 year old male with past medical history of aortic valve replacement many years ago on oral aspirin who came into the hospital because of shortness of breath getting worse over last 11 days. Patient states he has been having symptoms for last 11 days associated with nausea, diarrhea and vomiting. He he has subjective feels a fever as well. Patient was tested positive at [facility] for COVID-19 pneumonia and received monoclonal antibody infusion 4 days ago. He states since he got the infusion he has gotten worse. On arrival to the ER his oxygen saturation was as low as 41% on room air and did not improve with oxygen supplementation so he was transitioned over to heated high flow. Blood work done in the ER showed a white count of 12,000, hemoglobin of 15.6, platelet count 319, ABG showing a pH of 7.5 with a PCO2 36, PO2 PO2 of 62.8 on 15 L nonrebreather, chemistry showing a sodium of 136, chloride of 97, CO2 of 30, creatinine of 0.8, lactate of 1.5, CRP of 37.2, UA showed negative nitrite, negative leuk esterase. Patient has had chest imaging as below. Patient went to the hospital for the management of acute hypoxic respiratory failure secondary COVID-19 pneumonia requiring high oxygen supplementation. On presentation patient was on heated high flow up to 60% FiO2. He received treatment with IV dexamethasone and remdesivir along with inhalation treatment. On admission there were also concerns for aspiration pneumonia for which he was started on IV antibiotics. Patient responded well to the treatment and inflammatory markers were monitored. Patient worked well with incentive spirom etry and flutter valve. Currently he is on 2 L of oxygen supplementation at rest requiring up to 3 to 4 L on ambulation. During hospitalization patient was found to be in paroxysmal atrial fibrillation for which she was started on oral Cardizem. Patient tolerated the procedure well. Patient has been advised to continue taking Eliquis 5 mg twice daily till Holter monitor has been done to rule out any further events of atrial fibrillation. He has been discharged in hemodynamically stable condition advised to follow-up with his primary care provider within next 1 week. Advised to take inhalation treatment with Advair and Spiriva daily. Advised to continue working with incentive spirometry and flutter valve while at home. Advised to continue taking dexamethasone 6 mg for next 10 days. He has been discharged on Augmentin and levofloxacin for 3 more days to finish a course of antibiotics for aspiration pneumonia. Can take his COVID-19 vaccination in 3 months. Advised to continue following social distancing and isolation protocol for next 10 days. Advised to come back to the ER if fever of more than 101 Fahrenheit, more difficulty breathing than usual or requiring higher oxygen supplementation. Physical Exam Narrative: EXAM NARRATIVE: General: No acute distress, AO x3,hard of hearing. HEENT: PERRLA, pupils bilaterally equal and reactive Chest: Normal vesicular breath sounds, no added sounds, equal good air entry bilaterally CVS: S1-S2 regular, no murmurs, no tachycardia, no gallops, no rubs Abdomen: Soft, nontender, no organomegaly, bowel sounds present Neuro: No focal deficits, no facial deformity, AO x3, power 5/5 in all limbs Discharge Data Data Completed and Pending: Completed Studies During Hospitalization Category Date Time Status CT angio chest PE protcl [id number] Stat Cat Scan 04/08/21 12:53 Completed XR chest 1V kendra ble [id number] Q48H Exams 04/09/21 06:00 Completed XR chest 1V kendra ble [id number] Q48H Exams 04/11/21 06:00 Completed XR chest 1V kendra ble [id number] Stat Exams 04/08/21 11:53 Completed CV. echo complete * [id number] Routine Ultrasound 04/10/21 13:12 Completed Pending at discharge Category Date Time Status XR chest 1V kendra ble [id number] Q48H Exams 04/13/21 06:00 Ordered Blood Culture Sta t Lab 04/08/21 18:16 Results Sputum Culture an d Gram Stain Stat Lab 04/08/21 11:53 Uncollected Addt'l Data from Hospital Stay: Laboratory Results WBC 13.1 10^3/uL (4.0 -10.0) H 04/11/21 05:45 RBC 4.15 10^6/uL (4.1 -5.3) 04/11/21 05:45 Hgb 13.2 g/dL (11.7-1 6.6) 04/11/21 05:45 Hct 40.4 % (42.0-52.0 ) L 04/11/21 05:45 MCV 97.3 fL (80-94) H 04/11/21 05:45 MCH 31.8 pg (28.0-34. 0) 04/11/21 05:45 MCHC 32.7 g/dL (30.0-3 6.0) 04/11/21 05:45 RDW 12.1 % (12.1-15.1 ) 04/11/21 05:45 Plt Count 361 10^3/cmm (130 -400) 04/11/21 05:45 MPV 10.3 fL (7.4-10.4 ) 04/11/21 05:45 Neut % (Auto) 87.6 % 04/11/21 05:45 Lymph % (Auto) 4.3 % 04/11/21 05:45 [place] % (Auto) 5.1 % 04/11/21 05:45 Eos % (Auto) 0.0 % 04/11/21 05:45 Baso % (Auto) 0.2 % 04/11/21 05:45 Neut # (Auto) 11.46 10^3/uL (1. 8-7.7) H 04/11/21 05:45 Lymph # (Auto) 0.6 10^3/uL (0.8- 4.8) L 04/11/21 05:45 [place] # (Auto) 0.7 10^3/uL (0.2- 0.9) 04/11/21 05:45 Eos # (Auto) 0.0 10^3/uL (0.0- 0.8) 04/11/21 05:45 Baso # (Auto) 0.0 10^3/uL (0.0- 0.1) 04/11/21 05:45 Nucleated RBC % (a uto) 0 % 04/11/21 05:45 Nucleated RBCs # 0.0 /100WBC 04/11/21 05:45 ESR 20 mm/hr (0-10) H 04/11/21 05:45 D-Dimer 0.56 ug/mIFEU (0- 0.59) 04/11/21 05:45 Specimen Type Arterial 04/08/21 12:04 Sample Site Radial, left 04/08/21 12:04 ABG pH 7.52 (7.35-7.45) H 04/08/21 12:04 ABG pCO2 36.4 mmHg (35-45) 04/08/21 12:04 ABG pO2 62.8 mmHg (80.0-1 00.0) L 04/08/21 12:04 ABG HCO3 29.4 mmol/L (22-2 6) H 04/08/21 12:04 ABG O2 Saturation 93.1 04/08/21 12:04 ABG Base Excess 6.3 mmol/L (-2.0- 2.0) H 04/08/21 12:04 Les Test Pos 04/08/21 12:04 A-a O2 Gradient 5.4 mmHg (5-10) 04/08/21 12:04 Hematocrit 46.9 % (42-52) 04/08/21 12:04 Hgb O2 Saturation 92.3 % (95-100) L 04/08/21 12:04 Carboxyhemoglobin 0.6 %THgb (0.4-20 .1) 04/08/21 12:04 Methemoglobin 0.2 % (0.4-1.5) L 04/08/21 12:04 Total Hemoglobin 15.3 g/dL (14-18) 04/08/21 12:04 Sodium 136.0 mmol/L (131 -143) 04/08/21 12:04 Potassium 3.6 mmol/L (3.5-5 .0) 04/08/21 12:04 Glucose 90.0 mg/dL (70-11 5) 04/08/21 12:04 Ionized Calcium 1.2 mmol/L (1.1-1 .4) 04/08/21 12:04 O2 Delivery Device Nrb 04/08/21 12:04 O2 Liters/Min 15.0 % 04/08/21 12:04 Sprinkler Fitter Apprentice ID Amh 04/08/21 12:04 Sodium 138 mmol/L (136-1 45) 04/11/21 05:45 Potassium 4.3 mmol/L (3.5-5 .1) 04/11/21 05:45 Chloride 106 mmol/L (98-10 7) 04/11/21 05:45 Carbon Dioxide 24 mmol/L (22-29) 04/11/21 05:45 Anion Gap 12.3 (5-19) 04/11/21 05:45 BUN 21 mg/dL (8-23) 04/11/21 05:45 Creatinine 0.8 mg/dL (0.7-1. 2) 04/11/21 05:45 GFR Calculation Not Reportable 04/11/21 05:45 Glucose 94 mg/dL (65-115) 04/11/21 05:45 POC Glucose 123 mg/dL (70-110 ) H 04/08/21 21:54 Calculated Osmolal ity 289 mOsm/kg (285- 295) 04/11/21 05:45 Lactic Acid 1.5 mmol/L (0.5-2 .2) 04/08/21 11:57 Calcium 7.7 mg/dL (8.5-10 .5) L 04/11/21 05:45 Phosphorus 4.1 mg/dL (2.5-4. 5) 04/09/21 06:22 Magnesium 2.2 mg/dL (1.7-2. 3) 04/09/21 06:22 Iron 66 ug/dL (59-158) 04/08/21 11:57 TIBC 191 mcg/dl 04/08/21 11:57 % Saturation 34.5 % (20-50) 04/08/21 11:57 Unsat Iron Binding 125 ug/dL (112-34 7) 04/08/21 11:57 Total Bilirubin 0.4 mg/dL (0.15-1 .2) 04/11/21 05:45 AST 17 U/L (0-40) 04/11/21 05:45 ALT 23 U/L (0-41) 04/11/21 05:45 Alkaline Phosphata se 71 IU/L (40-130) 04/11/21 05:45 Creatine Kinase 42 U/L (39-308) 04/11/21 05:45 C-Reactive Protein 12.9 mg/L (0.0-4. 9) H 04/11/21 05:45 Total Protein 5.1 g/dL (6.6-8.7 ) L 04/11/21 05:45 Albumin 2.7 g/dL (3.5-5.2 ) L 04/11/21 05:45 Globulin 2.4 g/dL (1.3-4.6 ) 04/11/21 05:45 Triglycerides 94 mg/dL (0-150) 04/09/21 06:22 Cholesterol 157 mg/dL (0-200) 04/09/21 06:22 LDL Cholesterol, C alc 96 mg/dL (50-129) 04/09/21 06:22 HDL Cholesterol 42 mg/dL (60-100) L 04/09/21 06:22 LDL/HDL Ratio 2.29 RATIO (0.00- 3.22) 04/09/21 06:22 Cholesterol/HDL Ra ez 3.74 mg/dL (1.0-5 .00) 04/09/21 06:22 Procalcitonin 0.30 ng/mL (0-0.5 ) 04/10/21 06:10 TSH 1.88 uIU/mL (0.27 -4.20) 04/09/21 06:22 Urine Color Yellow (Yellow) 04/08/21 18:50 Urine Appearance Clear (CLEAR) 04/08/21 18:50 Urine pH 9 (5-7) H 04/08/21 18:50 Ur Specific Gravit y 1.020 (1.005-1.0 30) 04/08/21 18:50 Urine Protein Neg (Negative) 04/08/21 18:50 Urine Glucose (UA) Norm (Normal) 04/08/21 18:50 Urine Ketones 1+ (Negative) H 04/08/21 18:50 Urine Blood Neg (Negative) 04/08/21 18:50 Urine Nitrate Negative (Negati ve) 04/08/21 18:50 Urine Bilirubin Neg (Negative) 04/08/21 18:50 Prot Sulfosalicyli c Acd Negative (Negati ve) 04/08/21 18:50 Urine Urobilinogen 1 mg/dL (Negative ) H 04/08/21 18:50 Ur Leukocyte Mar ase Negative (Negati ve) 04/08/21 18:50 Nasal/Oral COVID-1 9 PCR Detected H 04/08/21 14:39 SARS-CoV-2 Ag (Rap id) Negative (Negati ve) 04/08/21 14:39 Impressions Chest CTA 04/08/21 12:53 IMPRESSION: Bilateral pneumonia consistent with COVID-19 pneumonia. No pulmonary embolism. Radiation Dose CTDIVOL = (mGy): DLP = 411.85 (mGy-cm) Chest X-Ray 04/11/21 06:00 Impression: 1. No change in bilateral pulmonary opacities consistent with pneumonia. 2. Cardiomegaly and atherosclerosis. Microbiology 04/08/21 13:58 Nose MRSA Culture - Final 04/08/21 18:16 Blood Blood Culture - Preliminary NEGATIVE TO DATE 04/08/21 18:12 Blood Blood Culture - Preliminary NEGATIVE TO DATE 04/08/21 18:50 Urine Catheterized Legionella Urinary Antigen - Final 04/08/21 18:50 Urine Kidney Bacterial Antigens - Final Echocardiogram: CONCLUSIONS 1-Normal left ventricular cavity size. Normal left ventricular systolic function. No regional wall motion abnormalities. Left ventricular ejection fraction is estimated at 55 %. Grade I/IV diastolic dysfunction (abnormal relaxation filling pattern), normal to mildly elevated filling pressures. 2-Bioprosthetic aortic valve sitting in normal condition without significant valvular regurgitation or stenosis. 3-Mild tricuspid valve regurgitation. There appeared to be echogenic mass noted in the right atrium which may disappear in certain views raises a question regarding artifact versus vegetation. Clinical correlation advised. 4-There is no pericardial effusion. 5-Pulmonary artery systolic pressure is within normal limits. 6-Right atrial pressure is around 5 mm of mercury. 7-There are no prior echocardiogram studies to compare. Kaitlin Maldonado MD (Electronically Signed) Final Date: 11 April 2021 19:23 S Vitals: Last Vital Signs Temp 97.7 F 04/12/21 08:00 Pulse 67 04/12/21 08:17 Resp 18 04/12/21 08:17 BP 136/86 04/12/21 08:00 Pulse Ox 89 L 04/12/21 11:36 Discharge Plan Discharge Patient Disposition: Home Condition: Stable Prescriptions: New Vitamin C 500 mg tablet 500 mg PO DAILY Qty: 14 RF: 0 benzonatate 100 mg Capsule 100 mg PO TID PRN (Reason: cough) Qty: 10 RF: 0 duloxetine 30 mg Capsule,Delayed Release(Dr/Ec) 30 mg PO DAILY 30 Days Qty: 30 RF: 0 ferrous gluconate 324 mg (37.5 mg iron) Tablet 324 mg PO BIDWM 30 Days Qty: 60 RF: 0 zinc sulfate 50 mg zinc (220 mg) capsule 50 mg PO DAILY 30 Days Qty: 30 RF: 0 Cardizem CD 120 mg capsule,extended release 24hr 120 mg PO DAILY Qty: 30 RF: 0 Advair Diskus 250-50 mcg/dose blister with device 1 inh inhalation BID 14 Days Qty: 30 RF: 0 Spiriva Respimat 1.25 mcg/actuation mist 2 inh inhalation DAILY 14 Days Qty: 4 RF: 0 Eliquis 5 mg tablet 5 mg PO BID 30 Days Qty: 60 RF: 0 Continued multivitamin Tablet 1 tab PO DAILY RF: 0 Aspir-81 81 mg Tablet,Delayed Release (Dr/Ec) 81 mg PO BEDTIME RF: 0 [place] Plus Cold 2-20-325 mg Tablet, Effervescent 1 ea PO TID PRN (Reason: UNKNOWN) RF: 0 Mucinex DM 30-600 mg Tablet Extended Release 12 Hr 1 tab PO BID PRN (Reason: Congestion) RF: 0 ProAir HFA 90 mcg/actuation Hfa Aerosol Inhaler 2 puff INHALATION Q4H PRN (Reason: Shortness Of Breath) RF: 0 CoQ-10 100 mg Capsule 100 mg PO DAILY RF: 0 cholecalciferol (vitamin D3) 50 mcg (2,000 unit) capsule 2,000 unit PO DAILY RF: 0 dexamethasone 6 mg tablet 6 mg PO DAILY 7 Days Qty: 7 RF: 0 Discontinued azithromycin 500 mg tablet See Rx Instructions .ROUTE .COMPLEX RF: 0 Discharge Orders: Discharge Order (Routine); Ordered 04/12/21 Ordered By: Luke Dawkins Other Ambulatory Orders: ECG holter monitor 24 hour (Routine) Timeframe: 2 Weeks Facility: [facility] - Location: Cardiac Diagnostic Laboratory Ordered By: Luke Dawkins Referrals: Marcelo Thao DO [Primary Care Provider] - 7-10 days Discharge Diet: Cardiac Discharge Activity: Resume usual activity Patient Instructions: Viral Pneumonia (DC), Hypoxia (GEN), Opioid Safety Activity Restrictions/Additional Instructions: Advised to take inhalation treatment with Advair and Spiriva daily. Advised to continue working with incentive spirometry and flutter valve while at home. Advised to continue taking dexamethasone 6 mg for next 10 days. He has been discharged on Augmentin and levofloxacin for 3 more days to finish a course of antibiotics for aspiration pneumonia. Can take his COVID-19 vaccination in 3 months. Advised to continue following social distancing and isolation protocol for next 10 days. Advised to come back to the ER if fever of more than 101 Fahrenheit, more difficulty breathing than usual or requiring higher oxygen supplementation. Patient should continue taking Cardizem daily. He should be taking Eliquis 5 mg twice daily till Holter monitor has ruled out paroxysmal A. fib. Discharge Attestations Time Spent in Discharge Care*: greater than 30 min Specific Discharge Activities: educating patient, educating and/or supporting family/caregiver, discussing with pcp/other providers, discussing with case work aide/social workers/dc planners, documenting/other paperwork and evaluating patient/reviewing data Status at Discharge: Cognitive status at discharge: cognitively intact , Behavioral status at discharge: cooperative , Functional status at discharge: uses cane/walker Overall status at discharge: patient is progressing back to baseline Quality Metrics Clinical Quality Measures During this hospital stay, did patient experience: None Coding Level of Care Code Acute [facility] note Diagnoses Hypoxia R09.02 ARDS survivor Z87.09 COVID-19 U07.1 Paroxysmal A-fib I48.0 H/O aortic valve replacement Z95.2
[2021-04-12] MEDS: remdesivir 100 MG in sodium chloride 0.9% (100 ml) 100 ML IV (13:33)
--- NOTE | 2021-04-12 15:57 | PC.NURSE ---
Discharge Note Patient discharged to home with home oxygen accompanied by meño bradshaw to their private vehicle. Discharge instructions reviewed with patient and/or airline security representative. Mobile pharmacy medications and/or prescriptions provided. Belongings/home medications returned.
--- NOTE | 2021-04-15 16:06 | PC.RESP ---
SMOKING CESSATION INFORMATION SENT TO PATIENT.
--- NOTE | 2021-04-15 16:13 | PC.RESP ---
SMOKING CESSATION INFORMATION SENT TO PATIENT.
--- NOTE | 2021-04-18 08:28 | PC.SOCIAL ---
hospital discharge follow up call made, spoke with . Patient is feeling much better, is breathing better, states we think he's gonna make it now Picked up all new prescriptions and is taking as directed. Patient continues home O2 at 4L. Has follow up appointment with Dr. Thao and appointment to get holter monitor placed.
== END 2021-04-12 15:57 | disposition home or self-care (01) | DRG 177 ==
LOC: ER 11:53 → ER IP 18:57 → MS 2A 21:56
PROVIDERS: Admitting Provider Student in an Organized Health Care Education/Training Program; Emergency Provider Family Medicine; PCP Electrodiagnostic Medicine; Visit Provider Student in an Organized Health Care Education/Training Program
DX: U07.1 COVID-19 (principal); J12.82 Pneumonia due to coronavirus disease 2019; J80 Acute respiratory distress syndrome; I10 Essential (primary) hypertension; F17.200 Nicotine dependence, unspecified, uncomplicated; I48.0 Paroxysmal atrial fibrillation; E86.0 Dehydration; H91.90 Unspecified hearing loss, unspecified ear; Z95.2 Presence of prosthetic heart valve; Z79.01 Long term (current) use of anticoagulants; Z79.82 Long term (current) use of aspirin; Z82.49 Family history of ischemic heart disease and other diseases of the circulatory system
CPT/HCPCS: 36415; 36416; 36600; 71045; 71275; 80051; 80053; 80061; 81003; 82330; 82550; 82805; 82962; 83540; 83550; 83605; 83735; 84100; 84145; 84443; 85025; 85378; 85651; 86140; 86403; 87040; 87426; 87449; 87635; 87641; 93005; 93306; 94640; 96365; 96366; 96372; 96375; 97110; 97116; 97161; 99285; J1100; J1650; J2543; J3490; J7030; J7040; J7626; Q9967

== ENCOUNTER 2022-10-15 04:35 | Emergency (ER) | payer MEDICARE, OTHER, SELFPAY ==
--- NOTE | 2022-10-15 04:37 | XRR_ITS ---
PROCEDURE INFORMATION: Exam: XR Chest Exam date and time: 10/15/2022 4:52 AM Age: 82 years old Clinical indication: Other: Stroke symptoms; Prior surgery; Surgery type: Aortic valve; Patient HX: Arrival via EMS for stroke like symptoms. ; Additional info: AMS TECHNIQUE: Imaging protocol: Radiologic exam of the chest. Views: 1 view. COMPARISON: CR XR chest 1V portable [id number] 04/11/2021 6:48 AM FINDINGS: Tubes, catheters and devices: EKG monitoring leads overlie the thoracic wall. Lungs: There is no evidence of focal pulmonary consolidation. Pleural spaces: No pleural effusion or pneumothorax. Heart/Mediastinum: Stable mild cardiomegaly. Vasculature: There is tortuosity and calcification of the aortic arch. Bones/joints: No acute fracture is identified. XR/XR chest 1V portable [id number] IMPRESSION: 1. Stable cardiomegaly. 2. No acute findings.
--- NOTE | 2022-10-15 04:37 | CTR_ITS ---
PROCEDURE INFORMATION: Exam: CT Head Without Contrast Exam date and time: 10/15/2022 4:39 AM Age: 82 years old Clinical indication: Stroke-like symptoms; Lt upper extremity and lt lower extremity weakness; Additional info: Arousal from sleep with left side weakness. EMS states possible left facial droop. TECHNIQUE: Imaging protocol: Computed tomography of the head without contrast. Radiation optimization: All CT scans at this facility use at least one of these dose optimization techniques: automated exposure control; mA and/or kV adjustment per patient size (includes targeted exams where dose is matched to clinical indication); or iterative reconstruction. Other protocol: This patient has received 0 known CTs and 0 known cardiac nuclear medicine studies in the 12 months prior to the current study. Other technique: STROKE PROTOCOL was implemented. COMPARISON: No relevant prior studies available. RADIATION DOSE METRICS: Total DLP (mGy-cm): 983.08 FINDINGS: Brain: There is no evidence of intracranial hemorrhage. No mass effect or midline shift. There is no territorial edema. There are confluent periventricular hypodensities consistent with moderate chronic microischemic changes of white matter. Cerebral ventricles: There is moderate volume loss and commensurate ventricular dilatation, consistent with the patient's age. Paranasal sinuses: There are no air-fluid levels. Mastoid air cells: The visualized mastoid air cells are well aerated. Bones/joints: No acute fracture. Soft tissues: Unremarkable. CT/CT head wo con* [id number] IMPRESSION: No acute findings. ASSESSMENT: ASPECTS ([place] Stroke Program Early CT Score) is 10.
[2022-10-15 04:45] VITALS: BP 148/110; PULSE 96; RESP 16; TEMP 36.9; O2SAT 94
--- NOTE | 2022-10-15 04:49 | ED_ITS ---
HPI - General Adult General: Chief complaint: Altered Mental Status Stated complaint: stroke like symptoms Time Seen by Provider: 10/15/22 04:37 Source: patient, family and EMS Mode of arrival: EMS Limitations: no limitations History of Present Illness: 82-year-old male with no history of seizures that states that in bed around 3 AM he started shaking and had wet the bed she states that then he was unresponsive she was unable to awaken him. EMS arrived they states that patient was confused seem to have a left-sided weakness likely postictal. Patient is now awake alert he does not member any of this he has no complaints no headache no chest pain he is able ambulate he has no deficits he states he has no history of seizures he states he been feeling fine no fevers. 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 Surgical History H/O aortic valve replacement Family History (Updated 04/08/21 @ 22:16 by Luke Dawkins MD) Other CAD (coronary artery disease) Denies family history of Chronic kidney disease (CKD) Social History Smoking and tobacco status: current every day smoker Alcohol intake: never Household members: spouse Housing: House Physical Exam Const: COMMON NORMALS: no acute distress, patient oriented x3 and healthy appearing HENMT: COMMON NORMALS: normocephalic and atraumatic HEAD & SCALP: normocephalic and atraumatic Eye: COMMON NORMALS: Equal, round and reactive pupils present and EOMs intact bilaterally PUPIL: Yes Equal, round and reactive pupils present Neck/C-Spine: COMMON NORMALS: full ROM and supple Chest: COMMONS NORMALS: normal inspection of the chest and normal palpation of entire chest wall Resp: COMMON NORMALS: normal respiratory effort, No retractions, No use of accessory muscles and clear to auscultation bilaterally AUSCULTATION: clear to auscultation bilaterally Cardio: COMMON NORMALS: regular rate, regular rhythm and No murmurs present (Cardio) RATE: regular rate RHYTHM: regular rhythm GI: COMMON NORMALS: Normal to inspection, nondistended, normoactive bowel sounds present, Soft to palpation, non-tender and no masses PALPATION: Yes Soft to palpation Extremity: COMMON NORMALS: normal to inspection and full ROM Neuro: COMMON NORMALS: patient oriented x3, moves all extremities and no focal motor deficits Psych: COMMON NORMALS: mental status grossly normal, Normal thought process present and cooperative THOUGHT PROCESS: Normal thought process present Skin: COMMON NORMALS: no rashes or lesions noted and no wounds GENERAL SKIN EXAM: no rashes or lesions noted Course Vital Signs: Vital signs: Vital Signs Temperature 98.4 F 10/15/22 04:45 Pulse Rate 96 10/15/22 04:45 Respiratory Rate 16 10/15/22 04:45 Blood Pressure 148/110 10/15/22 04:45 Pulse Oximetry 94 10/15/22 04:45 Oxygen Delivery Me thod 10/15/22 04:45 [facility] - General Adult Medical Decision Making Patient presents here with a likely seizure he is awake and alert well-appearing here he is ambulatory I did try to give him seizure medication and was going to prescribe him meds for home he states he does not take meds and he refused them. He is wanting to go home at this point he has been stable here and is stable for discharge he is to follow-up with neurology return if worsening. Lab Data 10/15/22 04:40 10/15/22 04:[address] 10/15/22 04:37 IMPRESSION: No acute findings. ASSESSMENT: ASPECTS ([place] Stroke Program Early CT Score) is 10. Laboratory Results WBC 7.8 10^3/uL (4.0-10.0) 10/15/22 04:40 RBC 4.37 10^6/uL (4.1-5.3) 10/15/22 04:40 Hgb 13.7 g/dL (11.7-16.6) 10/15/22 04:40 Hct 42.0 % (42.0-52.0) 10/15/22 04:40 MCV 96.1 fl (80-94) H 10/15/22 04:40 MCH 31.4 pg (28.0-34.0) 10/15/22 04:40 MCHC 32.6 g/dL (30.0-36.0) 10/15/22 04:40 RDW 12.6 % (12.1-15.1) 10/15/22 04:40 Plt Count 236 10^3/cmm (130-400) 10/15/22 04:40 MPV 10.2 fL (7.4-10.4) 10/15/22 04:40 Neut % (Auto) 65.8 % 10/15/22 04:40 Lymph % (Auto) 23.0 % 10/15/22 04:40 [place] % (Auto) 8.6 % 10/15/22 04:40 Eos % (Auto) 1.0 % 10/15/22 04:40 Baso % (Auto) 0.3 % 10/15/22 04:40 Neut # (Auto) 5.16 10^3/uL (1.8-7.7) 10/15/22 04:40 Lymph # (Auto) 1.8 10^3/uL (0.8-4.8) 10/15/22 04:40 [place] # (Auto) 0.7 10^3/uL (0.2-0.9) 10/15/22 04:40 Eos # (Auto) 0.1 10^3/uL (0.0-0.8) 10/15/22 04:40 Baso # (Auto) 0.0 10^3/uL (0.0-0.1) 10/15/22 04:40 Nucleated RBC % (auto) 0 % 10/15/22 04:40 Nucleated RBCs # 0.0 /100WBC 10/15/22 04:40 PT 14.50 SECONDS (12.1-14.9) 10/15/22 04:40 INR 1.09 (0.8-1.2) 10/15/22 04:40 Sodium 141 mmol/L (136-145) 10/15/22 04:40 Potassium 4.5 mmol/L (3.5-5.1) 10/15/22 04:40 Chloride 104 mmol/L (98-107) 10/15/22 04:40 Carbon Dioxide 22 mmol/L (22-29) 10/15/22 04:40 Anion Gap 19.5 (5-19) H 10/15/22 04:40 BUN 13 mg/dL (8-23) 10/15/22 04:40 Creatinine 1.0 mg/dL (0.7-1.2) 10/15/22 04:40 GFR Calculation Not Reportable 10/15/22 04:40 Glucose 120 mg/dL (65-115) H 10/15/22 04:40 Calculated Osmolality 293 mOsm/kg (285-295) 10/15/22 04:40 Calcium 9.0 mg/dL (8.5-10.5) 10/15/22 04:40 Total Bilirubin 0.6 mg/dL (0.15-1.2) 10/15/22 04:40 AST 32 U/L (0-40) 10/15/22 04:40 ALT 19 U/L (0-41) 10/15/22 04:40 Alkaline Phosphatase 89 U/L (40-130) 10/15/22 04:40 Total Protein 6.2 g/dL (6.6-8.7) L 10/15/22 04:40 Albumin 3.9 g/dL (3.5-5.2) 10/15/22 04:40 Globulin 2.3 g/dL (1.3-4.6) 10/15/22 04:40 Ethyl Alcohol < 10 mg/dL (0-10) 10/15/22 04:40 Discharge Plan Discharge Patient Disposition: Home Clinical Impression: Seizure Condition: Stable Prescriptions: No Action multivitamin Tablet 1 tab PO DAILY aspirin 81 mg Tablet,Delayed Release (Dr/Ec) 81 mg PO BEDTIME npudihfaxtvzvzpt-VEN-kxcnggm 2-20-325 mg Tablet, Effervescent 1 ea PO TID PRN (Reason: UNKNOWN) Mucinex DM 30-600 mg Tablet Extended Release 12 Hr 1 tab PO BID PRN (Reason: Congestion) ProAir HFA 90 mcg/actuation Hfa Aerosol Inhaler 2 puff INHALATION Q4H PRN (Reason: Shortness Of Breath) CoQ-10 100 mg Capsule 100 mg PO DAILY cholecalciferol (vitamin D3) 50 mcg (2,000 unit) capsule 2,000 unit PO DAILY Vitamin C 500 mg tablet 500 mg PO DAILY Qty: 14 0RF benzonatate 100 mg Capsule 100 mg PO TID PRN (Reason: cough) Qty: 10 0RF Cardizem CD 120 mg capsule,extended release 24hr 120 mg PO DAILY Qty: 30 0RF dexamethasone 6 mg tablet 6 mg PO DAILY 7 Days Qty: 7 0RF Discharge Orders: Discharge ED (Routine); Ordered 10/15/22 Ordered By: Lucille Mcmillan Referrals: Mirtha Horan MD [Physician] - 1-3 days Marcelo Thao DO [Primary Care Provider] - Discharge Diet: Advance as tolerated Discharge Activity: Resume usual activity Patient Instructions: New-Onset Seizure in Adults (ED) Coding Level of Care Code ED 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
--- NOTE | 2022-10-15 04:50 | ECG_ITS ---
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 [id number]
[2022-10-15 04:51] LABS: Basophils % 0.3 %; Eosinophils # 0.1 10^3/uL (0.0-0.8); Hemoglobin 13.7 g/dL (11.7-16.6); Lymphocytes # 1.8 10^3/uL (0.8-4.8); Mean Corpuscular HGB Conc 32.6 g/dL (30.0-36.0); Mean Corpuscular Hemoglobin 31.4 pg (28.0-34.0); Mean Corpuscular Volume 96.1 fl (80-94); Mean Platelet Volume 10.2 fL (7.4-10.4); Monocytes # 0.7 10^3/uL (0.2-0.9); Monocytes % 8.6 %; Neutrophils # 5.16 10^3/uL (1.8-7.7); Neutrophils % 65.8 %; Nucleated Red Blood Cells % 0 %; Platelet Count 236 10^3/cmm (130-400); Red Blood Count 4.37 10^6/uL (4.1-5.3); Red Cell Distribution Width 12.6 % (12.1-15.1); White Blood Count 7.8 10^3/uL (4.0-10.0)
[2022-10-15 05:04] LABS: INR 1.09 (0.8-1.2)
--- NOTE | 2022-10-15 05:05 | PC.NURSE ---
Salvador taken to bedside to be given. Family states I don't think he will want that. Pt asked what it was for, which I explained. Pt stated he didn't believe he needed it. notified. Salvador cancelled.
[2022-10-15 05:08] LABS: Alanine Aminotransferase 19 U/L (0-41); Albumin Level 3.9 g/dL (3.5-5.2); Alkaline Phosphatase 89 U/L (40-130); Anion Gap 19.5 (5-19); Aspartate Amino Transferase 32 U/L (0-40); Blood Urea Nitrogen 13 mg/dL (8-23); Carbon Dioxide 22 mmol/L (22-29); Chloride 104 mmol/L (98-107); Globulin 2.3 g/dL (1.3-4.6); Glucose 120 mg/dL (65-115); Osmolality Calculated 293 mOsm/kg (285-295); Potassium 4.5 mmol/L (3.5-5.1); Sodium 141 mmol/L (136-145); Total Bilirubin 0.6 mg/dL (0.15-1.2); Total Protein 6.2 g/dL (6.6-8.7)
[2022-10-15 05:22] LABS: Alcohol Level < 10 mg/dL (0-10)
--- NOTE | 2022-10-15 05:40 | PC.NURSE ---
at bedside. Pt stating his back is hurting. Md offered a dose of something for pain prior to leaving. Pt denied need for this at this time.
--- NOTE | 2022-10-15 08:58 | DCPLANNER ---
Addendum entered by Carol Ann Medina 02/11/23 10:05: Patient had a follow up appointment scheduled with neurology - patient did attend appointment. Addendum entered by Carol Ann Medina 11/06/22 08:05: Patient has a follow up appointment scheduled for Friday, February 10, 2023 at 10:[address] Horan at neurology. Clinic will call patient with appointment information. Original Note: lead case manager had message to schedule a follow up appointment for patient with neurology. lead case manager sent patients information to the front office staff at neurology. Patients information will be printed and reviewed. Clinic will call patient with appointment information.
[2022-10-15 18:57] LABS: Glucose Point of Care 112 mg/dL (70-110)
== END 2022-10-15 05:52 | disposition home or self-care (01) ==
PROVIDERS: Emergency Provider Emergency Medicine; PCP Electrodiagnostic Medicine
DX: R56.9 Unspecified convulsions (principal)
CPT/HCPCS: 36416; 70450; 71045; 80053; 80307; 82962; 85025; 85610; 93005; 99285

== ENCOUNTER → 2023-02-10 09:33 | Outpatient (BNVA) | payer MEDICARE, OTHER, SELFPAY | PROVIDERS: PCP Electrodiagnostic Medicine; Referring Provider Emergency Medicine; Visit Provider Specialist | DX: G40.309 Generalized idiopathic epilepsy and epileptic syndromes, not intractable, without status epilepticus (principal); R41.89 Other symptoms and signs involving cognitive functions and awareness; Z91.81 History of falling | CPT/HCPCS: 96116; 99205 ==

== ENCOUNTER → 2023-03-09 07:42 | Outpatient (BNVA) | payer MEDICARE, OTHER, SELFPAY | PROVIDERS: PCP Electrodiagnostic Medicine; Referring Provider Specialist; Visit Provider Specialist | DX: G40.309 Generalized idiopathic epilepsy and epileptic syndromes, not intractable, without status epilepticus (principal) | CPT/HCPCS: 95816 ==

== ENCOUNTER → 2023-04-14 09:26 | Outpatient (BNVA) | payer MEDICARE, OTHER, SELFPAY | PROVIDERS: PCP Electrodiagnostic Medicine; Visit Provider Specialist | DX: G40.309 Generalized idiopathic epilepsy and epileptic syndromes, not intractable, without status epilepticus (principal); Z91.148 Patient's other noncompliance with medication regimen for other reason | CPT/HCPCS: 99214 ==

== ENCOUNTER → 2023-07-07 10:32 | Outpatient (BNVA) | payer MEDICARE, OTHER, SELFPAY | PROVIDERS: PCP Electrodiagnostic Medicine; Visit Provider Nurse Practitioner Family | DX: R39.9 Unspecified symptoms and signs involving the genitourinary system (principal) | CPT/HCPCS: 81000 ==

== ENCOUNTER 2025-01-04 10:37 | Outpatient (CLI) | payer MEDICARE, OTHER, SELFPAY ==
--- NOTE | 2025-01-04 10:42 | MR_ITS ---
WS: [id number] MRI BRAIN WITH AND WITHOUT CONTRAST HISTORY: SEIZURE COMPARISON: CT head 10/15/2022 TECHNIQUE: Multiplanar imaging performed through the brain with MultiHance 11 ml's IV. No acute infarcts are seen. [place]-white matter differentiation is well preserved. Moderate small vessel ischemic disease in a periventricular distribution. Small lacunar infarct LEFT centrum semiovale. No susceptibility artifacts or prior lacunar infarcts. Mild bilateral hippocampal atrophy. Clivus and pituitary gland are normal. Mild cerebellar atrophy. Minimal ischemic changes in the LEFT jimmy. Postcontrast images are negative for masses or vascular malformations. Dural venous sinuses are normal. Paranasal sinuses: Mild bilateral circumferential thickening involving the maxillary sinuses with no air-fluid levels. Mastoid air cells: Normal. Calvarium and scalp: Normal. MR/MR head wo/w con [id number] IMPRESSION: 1. No acute infarct. 2. No enhancing masses or vascular malformations. 3. Moderate small vessel ischemic disease in a small lacunar infarct LEFT cent rum semiovale. 4. Mild cerebral and cerebellar atrophy. 5. Bilateral maxillary sinus disease. 6. Mild bilateral hippocampal atrophy.
[2025-01-04] MEDS: gadobenate dimeglumine 20 mL vial 11 ML IV (11:24)
== END 2025-01-04 10:38 | disposition home or self-care (01) ==
LOC: RAD 10:39
PROVIDERS: PCP Electrodiagnostic Medicine; Visit Provider Electrodiagnostic Medicine
DX: R56.9 Unspecified convulsions (principal); R93.0 Abnormal findings on diagnostic imaging of skull and head, not elsewhere classified; G31.89 Other specified degenerative diseases of nervous system; I67.89 Other cerebrovascular disease; I63.81 Other cerebral infarction due to occlusion or stenosis of small artery; J32.0 Chronic maxillary sinusitis
CPT/HCPCS: 70553